=== PATIENT | female | born 1985 | race African-American/Black ===

== ENCOUNTER 2017-04-21 23:32 | Emergency (ER) | payer BC, SELFPAY ==
[2017-04-21] MEDS ORDERED: Pantoprazole 40 MG Vial IVPUSH ONE (23:48)
[2017-04-21] MEDS ORDERED: Aspirin 81 MG Tab.Chew PO ONE (23:48)
[2017-04-21] MEDS ORDERED: Sodium Chloride 0.9% 1,000 ML IV ONE (23:48)
--- NOTE | 2017-04-21 23:48 | EDM.PDOC ---
ED HPI GENERAL MEDICAL PROBLEM - General Chief Complaint: General Stated Complaint: DIABETIC, CHEST PAIN Time Seen by Provider: 04/21/17 23:47 Source of Information: Reports: Patient - History of Present Illness INITIAL COMMENTS - FREE TEXT/NARRATIVE: HISTORY AND PHYSICAL: History of present illness: [] Patient presents with one week of palpitations and chest pain associated with taking her insulin, subsequently with eating. currently , no fever nausea vomiting chills sweats rates pain 3/10 no association with diaphoresis or shortness of breath no radiation to arm neck or jaw. The pain is currently resolved 0/10 in no apparent distress Review of systems: As per history of present illness and below otherwise all systems reviewed and negative. Past medical history: As per history of present illness and as reviewed below otherwise noncontributory. Surgical history: As per history of present illness and as reviewed below otherwise noncontributory. Social history: No reported history of drug or alcohol abuse. Family history: As per history of present illness and as reviewed below otherwise noncontributory. Physical exam: HEENT: Atraumatic, normocephalic, pupils reactive, negative for conjunctival pallor or scleral icterus, mucous membranes moist, throat clear, neck supple, nontender, trachea midline. Lungs: Clear to auscultation, breath sounds equal bilaterally, chest nontender. Heart: S1S2, regular, negative for clicks, rubs, or JVD. Abdomen: Soft, nondistended, nontender. Negative for masses or hepatosplenomegaly. Negative for costovertebral tenderness. Pelvis: Stable nontender. Genitourinary: Deferred. Rectal: Deferred. Extremities: Atraumatic, negative for cords or calf pain. Neurovascular unremarkable. Neuro: Awake, alert, oriented. Cranial nerves II through XII unremarkable. Cerebellum unremarkable. Motor and sensory unremarkable throughout. Exam nonfocal. Diagnostics: [] Lab as below EKG Chest one view Accu-Chek 80 Therapeutics: [] Normal saline bolus Aspirin 324 mg chewable Protonix 80 mg IV Patient refused normal saline and Protonix Impression: [gerd Diabetes mellitus Definitive disposition and diagnosis as appropriate pending reevaluation and review of above. no pain Pain Score (Numeric/FACES): 0 - Related Data Allergies Allergy/AdvReac Type Severity Reaction Status Date / Time No Known Allergies Allergy Verified 04/21/17 23:38 Home Meds: Home Meds Insulin Aspart [NovoLOG] 28 unit SUBCUT ASDIRECTED 04/14/16 [History] Insulin Glargine,Hum.Rec.Anlog [Agustín Calderontonychantale] 72 unit SQ ACBREAKFAST [History] Past Medical History HEENT History: Reports: None Cardiovascular History: Reports: None Respiratory History: Reports: None Gastrointestinal History: Reports: Other (See Below) Other Gastrointestinal History: occas heartburn with Genitourinary History: Reports: None 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 OB/BYN History: currently 16 weeks Musculoskeletal History: Reports: None Neurological History: Reports: None Psychiatric History: Reports: None Endocrine/Metabolic History: Reports: Diabetes, Type II Hematologic History: Reports: None Immunologic History: Reports: None Oncologic (Cancer) History: Reports: None Dermatologic History: Reports: None - Past Surgical History Female Surgical History: Reports: Section Social & Family History - Family History Family Medical History: Noncontributory - Tobacco Use Smoking Status *Q: Never Smoker Second Hand Smoke Exposure: No - Alcohol Use Days Per Week of Alcohol Use: 0 - Recreational Drug Use Recreational Drug Use: No Drug Use in Last 12 Months: No ED ROS GENERAL - Review of Systems Review Of Systems: ROS reveals no pertinent complaints other than HPI. ED EXAM, GENERAL - Physical Exam Exam: See Below Course - Vital Signs Last Recorded V/S: Last Vital Signs Temp 36.3 C 04/21/17 23:40 Pulse 88 04/21/17 23:40 Resp 16 04/21/17 23:40 BP 127/77 04/21/17 23:40 Pulse Ox 98 04/21/17 23:40 - Orders/Labs/Meds Orders: Active Orders 24 hr Category Date Time Status Accu Check [Blood Glucose Check, Bedside] [RC] ONETIME Care 04/21/17 23:50 Active EKG Documentation Completion [RC] STAT Care 04/21/17 23:48 Active Chest 1V Frontal [CR] Stat Exams 04/21/17 23:48 Taken Labs: Laboratory Tests 04/21/17 04/21/17 04/21/17 Range/Units 23:51 23:51 23:51 WBC 6.20 (4.0-11.0) K/uL RBC 3.98 L (4.30-5.90) M/uL Hgb 12.0 (12.0-16.0) g/dL Hct 35.2 L (36.0-46.0) % MCV 88.4 (80.0-98.0) fL MCH 30.2 (27.0-32.0) pg MCHC 34.1 (31.0-37.0) g/dL RDW Std Deviation 46.8 (28.0-62.0) fl RDW Coeff of Puneet 14 (11.0-15.0) % Plt Count 239 (150-400) K/uL MPV 10.10 (7.40-12.00) fL Neut % (Auto) 44.7 L (48.0-80.0) % Lymph % (Auto) 48.1 H (16.0-40.0) % [place] % (Auto) 6.1 (0.0-15.0) % Eos % (Auto) 0.8 (0.0-7.0) % Baso % (Auto) 0.3 (0.0-1.5) % Neut # (Auto) 2.8 (1.4-5.7) K/uL Lymph # (Auto) 3.0 H (0.6-2.4) K/uL [place] # (Auto) 0.4 (0.0-0.8) K/uL Eos # (Auto) 0.1 (0.0-0.7) K/uL Baso # (Auto) 0.0 (0.0-0.1) K/uL Nucleated RBC % 0.0 /100WBC Nucleated RBCs # 0 K/uL Sodium 139 (136-146) mmol/L Potassium 4.0 (3.5-5.1) mmol/L Chloride 111 H (98-110) mmol/L Carbon Dioxide 21 (21-31) mmol/L BUN 11 (6.0-23.0) mg/dL Creatinine 0.8 (0.6-1.5) mg/dL Est Cr Clr Drug Dosing 81.33 mL/min Estimated GFR (MDRD) > 60.0 ml/min Glucose 91 (60-110) mg/dL Calcium 9.1 (8.8-10.8) mg/dL Total Bilirubin 0.2 (0.1-1.5) mg/dL AST 29 (5-40) IU/L ALT 17 (8-54) IU/L Alkaline Phosphatase 63 (40-150) Troponin I < 0.10 (0.0-0.29) NG/ML Total Protein 7.3 (6.0-8.0) g/dL Albumin 4.2 (3.5-5.0) g/dL Globulin 3.1 (2.0-3.5) g/dL Albumin/Globulin Ratio 1.4 (1.3-2.8) Amylase 66 (10-90) U/L Lipase 41 (7-80) U/L Urine Color Urine Appearance Urine pH (5.0-8.0) Ur Specific [place] (1.001-1.035) Urine Protein (NEGATIVE) mg/dL Urine Glucose (UA) (NEGATIVE) mg/dL Urine Ketones (NEGATIVE) mg/dL Urine Occult Blood (NEGATIVE) Urine Nitrite (NEGATIVE) Urine Bilirubin (NEGATIVE) Urine Urobilinogen (<2.0) EU/dL Ur Leukocyte Esterase (NEGATIVE) Urine RBC (0-2/HPF) Urine WBC (0-5/HPF) Ur Epithelial Cells (NONE-FEW) Urine Bacteria (NEGATIVE) 04/22/17 Range/Units 00:10 WBC (4.0-11.0) K/uL RBC (4.30-5.90) M/uL Hgb (12.0-16.0) g/dL Hct (36.0-46.0) % MCV (80.0-98.0) fL MCH (27.0-32.0) pg MCHC (31.0-37.0) g/dL RDW Std Deviation (28.0-62.0) fl RDW Coeff of Puneet (11.0-15.0) % Plt Count (150-400) K/uL MPV (7.40-12.00) fL Neut % (Auto) (48.0-80.0) % Lymph % (Auto) (16.0-40.0) % [place] % (Auto) (0.0-15.0) % Eos % (Auto) (0.0-7.0) % Baso % (Auto) (0.0-1.5) % Neut # (Auto) (1.4-5.7) K/uL Lymph # (Auto) (0.6-2.4) K/uL [place] # (Auto) (0.0-0.8) K/uL Eos # (Auto) (0.0-0.7) K/uL Baso # (Auto) (0.0-0.1) K/uL Nucleated RBC % /100WBC Nucleated RBCs # K/uL Sodium (136-146) mmol/L Potassium (3.5-5.1) mmol/L Chloride (98-110) mmol/L Carbon Dioxide (21-31) mmol/L BUN (6.0-23.0) mg/dL Creatinine (0.6-1.5) mg/dL Est Cr Clr Drug Dosing mL/min Estimated GFR (MDRD) ml/min Glucose (60-110) mg/dL Calcium (8.8-10.8) mg/dL Total Bilirubin (0.1-1.5) mg/dL AST (5-40) IU/L ALT (8-54) IU/L Alkaline Phosphatase (40-150) Troponin I (0.0-0.29) NG/ML Total Protein (6.0-8.0) g/dL Albumin (3.5-5.0) g/dL Globulin (2.0-3.5) g/dL Albumin/Globulin Ratio (1.3-2.8) Amylase (10-90) U/L Lipase (7-80) U/L Urine Color YELLOW Urine Appearance CLEAR Urine pH 6.0 (5.0-8.0) Ur Specific [place] 1.020 (1.001-1.035) Urine Protein NEGATIVE (NEGATIVE) mg/dL Urine Glucose (UA) NEGATIVE (NEGATIVE) mg/dL Urine Ketones NEGATIVE (NEGATIVE) mg/dL Urine Occult Blood NEGATIVE (NEGATIVE) Urine Nitrite NEGATIVE (NEGATIVE) Urine Bilirubin NEGATIVE (NEGATIVE) Urine Urobilinogen 0.2 (<2.0) EU/dL Ur Leukocyte Esterase NEGATIVE (NEGATIVE) Urine RBC 0-1 (0-2/HPF) Urine WBC 0-1 (0-5/HPF) Ur Epithelial Cells MODERATE (NONE-FEW) Urine Bacteria FEW (NEGATIVE) Meds: Medications Discontinued Medications Generic Name Dose Route Start Last Admin Trade Name Freq PRN Reason Stop Dose Admin Aspirin 324 mg 04/21/17 23:48 04/22/17 00:06 Aspirin PO 04/21/17 23:49 324 mg ONETIME ONE Administration Sodium Chloride 1,000 mls @ 999 mls/hr 04/21/17 23:48 04/22/17 00:08 Normal Saline IV 04/22/17 00:48 Not Given STAT ONE Pantoprazole Sodium 80 mg 04/21/17 23:48 04/22/17 00:08 Protonix Iv IVPUSH 04/21/17 23:49 Not Given .BOLUS ONE Departure - Departure Time of Disposition: 01:00 Disposition: Home, Self-Care 01 Condition: good Clinical Impression: GERD (gastroesophageal reflux disease) - Discharge Information Forms: ED Department Discharge Additional Instructions: consider prilosec otc daily return if symptoms persist or worsen f/u pcp 2 weeks sooner as needed - My Orders Last 24 Hours: My Active Orders 04/21/17 23:48 EKG Documentation Completion [RC] STAT Chest 1V Frontal [CR] Stat 04/21/17 23:50 Accu Check [Blood Glucose Check, Bedside] [RC] ONETIME - Assessment/Plan Last 24 Hours: My Active Orders 04/21/17 23:48 EKG Documentation Completion [RC] STAT Chest 1V Frontal [CR] Stat 04/21/17 23:50 Accu Check [Blood Glucose Check, Bedside] [RC] ONETIME
[2017-04-22 00:42] LABS: CHLORIDE,CL 111 mmol/L (98-110); SODIUM,NA 139 mmol/L (136-146)
[2017-04-22 01:10] VITALS: BP 121/80
--- NOTE | 2017-04-23 14:53 | CR ---
EXAM DATE: 04/21/17 PATIENT'S AGE: 31 Patient: MARIAMA STOKES Facility: [place], [place] Site . Site : [id number] Study: XRay Chest [id number]/4/2017 12:26:31 AM Ordering Physician: Vita Regalado Final Report: Indication: Chest pain Technique: Chest 1 view Comparison: None Findings/Impression: Cardiovascular and mediastinum: Upper limits of normal cardiac size, probably related to the portable technique. Lungs and pleural space: Lungs are clear. No sign of infiltrate or mass. No sign of pleural effusion. No pneumothorax. Bones and soft tissues: No significant findings. Dictated by Marco A Chua MD @ 04/22/2017 1:30:23 AM Dictated by: Marco A Chua MD @ 04/22/2017 01:30:31 (Electronic Signature) Report Signed by Proxy. MULUGETA
== END 2017-04-22 01:11 | disposition home or self-care (01) ==
LOC: MW.ED 23:32
DX: K21.9 Gastro-esophageal reflux disease without esophagitis (principal); E11.9 Type 2 diabetes mellitus without complications; Z79.4 Long term (current) use of insulin; Z98.890 Other specified postprocedural states
CPT/HCPCS: 71010; 80053; 81001; 82150; 82962; 83690; 84484; 85025; 93005; 99285; A9270; 99284

== ENCOUNTER 2017-10-19 18:02 | Emergency (ER) | payer BC, SELFPAY ==
[2017-10-19 18:59] LABS: CHLORIDE,CL 108 mmol/L (98-110); SODIUM,NA 139 mmol/L (136-146)
--- NOTE | 2017-10-19 19:01 | EDM.PDOC ---
<Susie Nieto - Last Filed: 10/19/17 19:03> ED HPI GENERAL MEDICAL PROBLEM - General Chief Complaint: Chest Pain Stated Complaint: SHARP CHEST PAIN Time Seen by Provider: 10/19/17 18:08 Source of Information: Reports: Patient History Limitations: Reports: No Limitations - History of Present Illness INITIAL COMMENTS - FREE TEXT/NARRATIVE: History of present illness: []Patient as a history of diabetes and states that usually when her glucose is low it causes sharp chest pain. Pt's glucose has been running normal and this concerns her. She denies any fever, cough, congestion, ear or throat pain. She has no other complaints. Review of systems: As per history of present illness and below otherwise all systems reviewed and negative. Past medical history: As per history of present illness and as reviewed below otherwise noncontributory. Surgical history: As per history of present illness and as reviewed below otherwise noncontributory. Social history: No reported history of drug or alcohol abuse. Family history: As per history of present illness and as reviewed below otherwise noncontributory. Physical exam: General: Well developed, well nourished in NAD HEENT: Atraumatic, normocephalic, pupils reactive, negative for conjunctival pallor or scleral icterus, mucous membranes moist, throat clear, neck supple, nontender, trachea midline. Lungs: Clear to auscultation, breath sounds equal bilaterally, chest nontender. no rhonchi Heart: S1S2, regular, negative for clicks, rubs, or JVD. Abdomen: Soft, nondistended, nontender. Negative for masses or hepatosplenomegaly. Negative for costovertebral tenderness. Pelvis: Stable nontender. Genitourinary: Deferred. Rectal: Deferred. Extremities: Atraumatic, negative for cords or calf pain. Neurovascular unremarkable. Neuro: Awake, alert, oriented. Cranial nerves II through XII unremarkable. Cerebellum unremarkable. Motor and sensory unremarkable throughout. Exam nonfocal. Diagnostics: []chest x-ray and labs results pending. Dr. Barillas to check on results and dispo pt. Therapeutics: [] Impression: [] Plan: [] Definitive disposition and diagnosis as appropriate pending reevaluation and review of above. Middle Chest Pain Score (Numeric/FACES): 6 - Related Data Allergies Allergy/AdvReac Type Severity Reaction Status Date / Time No Known Allergies Allergy Verified 10/19/17 18:27 Home Meds: Home Meds Insulin Aspart [NovoLOG] 28 unit SUBCUT ASDIRECTED 04/14/16 [History] Insulin Glargine,Hum.Rec.Anlog [Agustín Yumikojonathan] 72 unit SQ ACBREAKFAST [History] Past Medical History HEENT History: Reports: None Cardiovascular History: Reports: None Respiratory History: Reports: None Gastrointestinal History: Reports: Other (See Below) Other Gastrointestinal History: occas heartburn with Genitourinary History: Reports: None 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 OB/BYN History: currently 16 weeks Musculoskeletal History: Reports: None Neurological History: Reports: None Psychiatric History: Reports: None Endocrine/Metabolic History: Reports: Diabetes, Type II Hematologic History: Reports: None Immunologic History: Reports: None Oncologic (Cancer) History: Reports: None Dermatologic History: Reports: None - Infectious Disease History Infectious Disease History: Reports: None - Past Surgical History Head Surgeries/Procedures: Reports: None Female Surgical History: Reports: Section Social & Family History - Family History Family Medical History: Noncontributory - Tobacco Use Smoking Status *Q: Never Smoker Second Hand Smoke Exposure: No - Caffeine Use Caffeine Use: Reports: None - Alcohol Use Days Per Week of Alcohol Use: 0 - Recreational Drug Use Recreational Drug Use: No Drug Use in Last 12 Months: No Course - Vital Signs Last Recorded V/S: Last Vital Signs Temp 97.4 F 10/19/17 18:26 Pulse 84 10/19/17 18:26 Resp 20 10/19/17 18:26 BP 116/71 10/19/17 18:26 Pulse Ox 98 10/19/17 18:26 - Orders/Labs/Meds Orders: Active Orders 24 hr Category Date Time Status EKG 12 Lead [EKG Documentation Completion] [RC] STAT Care 10/19/17 18:30 Active Chest 2V [CR] Stat Exams 10/19/17 18:23 Taken Labs: Laboratory Tests 10/19/17 10/19/17 10/19/17 Range/Units 18:36 18:36 18:36 WBC 5.13 (4.0-11.0) K/uL RBC 4.18 L (4.30-5.90) M/uL Hgb 12.6 (12.0-16.0) g/dL Hct 37.4 (36.0-46.0) % MCV 89.5 (80.0-98.0) fL MCH 30.1 (27.0-32.0) pg MCHC 33.7 (31.0-37.0) g/dL RDW Std Deviation 47.0 (28.0-62.0) fl RDW Coeff of [place]uneet 14 (11.0-15.0) % Plt Count 234 (150-400) K/uL MPV 10.60 (7.40-12.00) fL Neut % (Auto) 40.1 L (48.0-80.0) % Lymph % (Auto) 49.5 H (16.0-40.0) % [place] % (Auto) 8.6 (0.0-15.0) % Eos % (Auto) 1.6 (0.0-7.0) % Baso % (Auto) 0.2 (0.0-1.5) % Neut # (Auto) 2.1 (1.4-5.7) K/uL Lymph # (Auto) 2.5 H (0.6-2.4) K/uL [place] # (Auto) 0.4 (0.0-0.8) K/uL Eos # (Auto) 0.1 (0.0-0.7) K/uL Baso # (Auto) 0.0 (0.0-0.1) K/uL Nucleated RBC % 0.0 /100WBC Nucleated RBCs # 0 K/uL Sodium 139 (136-146) mmol/L Potassium 4.0 (3.5-5.1) mmol/L Chloride 108 (98-110) mmol/L Carbon Dioxide 23 (21-31) mmol/L BUN 7 (6.0-23.0) mg/dL Creatinine 0.7 (0.6-1.5) mg/dL Est Cr Clr Drug Dosing 92.10 mL/min Estimated GFR (MDRD) > 60.0 ml/min Glucose 125 H (60-110) mg/dL Calcium 9.8 (8.8-10.8) mg/dL Total Bilirubin 0.2 (0.1-1.5) mg/dL AST 25 (5-40) IU/L ALT 13 (8-54) IU/L Alkaline Phosphatase 72 (40-150) Troponin I < 0.10 (0.0-0.29) NG/ML Total Protein 7.4 (6.0-8.0) g/dL Albumin 3.9 (3.5-5.0) g/dL Globulin 3.5 (2.0-3.5) g/dL Albumin/Globulin Ratio 1.1 L (1.3-2.8) Urine HCG, Qual (NEGATIVE) 10/19/17 Range/Units 18:37 WBC (4.0-11.0) K/uL RBC (4.30-5.90) M/uL Hgb (12.0-16.0) g/dL Hct (36.0-46.0) % MCV (80.0-98.0) fL MCH (27.0-32.0) pg MCHC (31.0-37.0) g/dL RDW Std Deviation (28.0-62.0) fl RDW Coeff of [place]une[place] (11.0-15.0) % Plt Count (150-400) K/uL MPV (7.40-12.00) fL Neut % (Auto) (48.0-80.0) % Lymph % (Auto) (16.0-40.0) % [place] % (Auto) (0.0-15.0) % Eos % (Auto) (0.0-7.0) % Baso % (Auto) (0.0-1.5) % Neut # (Auto) (1.4-5.7) K/uL Lymph # (Auto) (0.6-2.4) K/uL [place] # (Auto) (0.0-0.8) K/uL Eos # (Auto) (0.0-0.7) K/uL Baso # (Auto) (0.0-0.1) K/uL Nucleated RBC % /100WBC Nucleated RBCs # K/uL Sodium (136-146) mmol/L Potassium (3.5-5.1) mmol/L Chloride (98-110) mmol/L Carbon Dioxide (21-31) mmol/L BUN (6.0-23.0) mg/dL Creatinine (0.6-1.5) mg/dL Est Cr Clr Drug Dosing mL/min Estimated GFR (MDRD) ml/min Glucose (60-110) mg/dL Calcium (8.8-10.8) mg/dL Total Bilirubin (0.1-1.5) mg/dL AST (5-40) IU/L ALT (8-54) IU/L Alkaline Phosphatase (40-150) Troponin I (0.0-0.29) NG/ML Total Protein (6.0-8.0) g/dL Albumin (3.5-5.0) g/dL Globulin (2.0-3.5) g/dL Albumin/Globulin Ratio (1.3-2.8) Urine HCG, Qual NEGATIVE (NEGATIVE) Departure - Departure Disposition: Still A Patient 31 Clinical Impression: Chest pain, pleuritic - Discharge Information Referrals: Ricky Drew MD [Primary Care Provider] - Forms: ED Department Discharge Additional Instructions: Ibuprofen 400 mg 3 times daily 7-10 days Return if symptoms persist or worsen Follow-up with primary care in 2 weeks sooner as needed The following information is given to patients seen in the emergency department who are being discharged to home. This information is to outline your options for follow-up care. We provide all patients seen in our emergency department with a follow-up referral. The need for follow-up, as well as the timing and circumstances, are variable depending upon the specifics of your emergency department visit. If you don't have a primary care physician on staff, we will provide you with a referral. We always advise you to contact your personal physician following an emergency department visit to inform them of the circumstance of the visit and for follow-up with them and/or the need for any referrals to a consulting specialist. The emergency department will also refer you to a specialist when appropriate. This referral assures that you have the opportunity for follow-up care with a specialist. All of these measure are taken in an effort to provide you with optimal care, which includes your follow-up. Under all circumstances we always encourage you to contact your private physician who remains a resource for coordinating your care. When calling for follow-up care, please make the office aware that this follow-up is from your recent emergency room visit. If for any reason you are refused follow-up, please contact the [facility] emergency department at and asked to speak to the emergency department charge nurse. <Fabricio Prather - Last Filed: 10/19/17 19:51> ED HPI GENERAL MEDICAL PROBLEM - History of Present Illness INITIAL COMMENTS - FREE TEXT/NARRATIVE: I've seen and examined the patient and agree with the above. Patient has pleuritic chest pain for 2 days worsened by deep inspiration she rates 3 out of 10 nonradiating along the costal margins bilaterally. Not associated with diaphoresis shortness of breath or radiation arm neck or jaw Patient has had slight dry cough over the last couple of days and presents as such, Denies fever nausea vomiting diarrhea constipation shortness breath headache dizziness or palpitation no bowel or urine symptoms Gen. no acute distress lying comfortably breathing nonlabored able to speak full sentences clearly HEENT NCAT PERRLA EOMI nares patent oropharynx clear neck supple no meningeal sign Chest clear throughout no wheeze or crackle CV regular rate and rhythm no murmur Abdomen soft nontender nondistended bowel sounds in all 4 quadrants Extremities four-inch motion strength 5 out of 5 no edema DIRECTOR OF ADMISSIONS alert nonfocal cranial nerves II through XII grossly intact cerebellum unremarkable motor and sensory unremarkable throughout exam nonfocal Lab as below, cardiac enzymes negative Chest x-ray Assessment Pleuritic chest pain Plan Ibuprofen 400 mg 3 times daily 7-10 days Return if symptoms persist or worsen Follow-up with primary care in 2 weeks Definitive disposition and diagnosis as appropriate pending reevaluation and review of above ED ROS GENERAL - Review of Systems Review Of Systems: ROS reveals no pertinent complaints other than HPI. ED EXAM, GENERAL - Physical Exam Exam: See Below Departure - Departure Time of Disposition: 19:50 Condition: Good
[2017-10-19 21:28] VITALS: BP 120/77
--- NOTE | 2017-10-22 11:42 | CR ---
EXAM DATE: 10/19/17 PATIENT'S AGE: 32 Patient: MARIAMA STOKES Facility: [place], [place] Site . Site : 1985 Study: XRay Chest [id number]/1/2017 7:36:42 PM Ordering Physician: Gerson Richards Final Report: INDICATION: chest pain TECHNIQUE: Chest 2 views COMPARISON: April 22, 2017 FINDINGS: Cardiovascular and mediastinum: Heart size and vasculature are normal in caliber and appearance. Mediastinum is within normal limits. Lungs and pleural spaces: No focal consolidation. No sign of pleural effusion. No pneumothorax. Bones and soft tissues: No significant findings. IMPRESSION: No acute cardiopulmonary disease. Dictated by Danyel Salvador MD @ 10/19/2017 7:49:47 PM Dictated by: Danyel Salvador MD @ 10/19/2017 19:49:55 (Electronic Signature) Report Signed by Proxy. MTDTina
== END 2017-10-19 20:08 | disposition home or self-care (01) ==
LOC: MW.ED 18:02
DX: R07.81 Pleurodynia (principal); E11.9 Type 2 diabetes mellitus without complications; Z79.4 Long term (current) use of insulin
CPT/HCPCS: 36415; 71020; 71020-26; 80053; 81025; 84484; 85025; 93005; 99284; 99285-25

== ENCOUNTER 2017-10-20 17:45 | Emergency (ER) | payer BC, SELFPAY ==
[2017-10-20] MEDS ORDERED: Alum Hydrox/Mag Hydrox/Simeth 15 ML, Metoclopramide 5 MG, Lidocaine 2% 5 ML PO ONE ×3 (18:05)
--- NOTE | 2017-10-20 18:13 | EDM.PDOC ---
ED HPI GENERAL MEDICAL PROBLEM - General Chief Complaint: Chest Pain Stated Complaint: PT HAS CHEST PAINS Time Seen by Provider: 10/20/17 17:58 Source of Information: Reports: Patient History Limitations: Reports: No Limitations - History of Present Illness INITIAL COMMENTS - FREE TEXT/NARRATIVE: History of present illness: []Patient is a 32-year-old female who is insulin-dependent diabetic who is here yesterday for the same reason of chest pain that she states is burning and heavy. She's had it before her cardiac workup has been negative. Diagnosed with GERD but does not take any medications for it currently. She is very upset because she was here yesterday and she was not happy with her care and is not happy that she has not received any pain medication. Patient seems to be very concerned that she has pain and and normal glucose. Usually her glucose is low when she has this pain. I offered to let this patient be evaluated by the other provider given that she was very unhappy with her care but she refused. Review of systems: As per history of present illness and below otherwise all systems reviewed and negative. Past medical history: As per history of present illness and as reviewed below otherwise noncontributory. Surgical history: As per history of present illness and as reviewed below otherwise noncontributory. Social history: No reported history of drug or alcohol abuse. Family history: As per history of present illness and as reviewed below otherwise noncontributory. Physical exam: General: Well developed, well nourished in NAD HEENT: Atraumatic, normocephalic, pupils reactive, negative for conjunctival pallor or scleral icterus, mucous membranes moist, throat clear, neck supple, nontender, trachea midline. Lungs: Clear to auscultation, breath sounds equal bilaterally, chest nontender. Heart: S1S2, regular, negative for clicks, rubs, or JVD. Abdomen: Soft, nondistended, mild epigastric tenderness without rebound or guarding. Negative for masses or hepatosplenomegaly. Negative for costovertebral tenderness. Pelvis: Stable nontender. Genitourinary: Deferred. Rectal: Deferred. Extremities: Atraumatic, negative for cords or calf pain. Neurovascular unremarkable. Neuro: Awake, alert, oriented. Cranial nerves II through XII unremarkable. Cerebellum unremarkable. Motor and sensory unremarkable throughout. Exam nonfocal. Diagnostics: []CABG 117 Therapeutics: []GI cocktail with alleviation of her abdominal pain Impression: []GERD, gastroparesis secondary to diabetes Plan: []Prilosec twice a day follow-up with her primary care physician Definitive disposition and diagnosis as appropriate pending reevaluation and review of above. Mid-Sternal Chest Pain Score (Numeric/FACES): 8 - Related Data Allergies Allergy/AdvReac Type Severity Reaction Status Date / Time No Known Allergies Allergy Verified 10/20/17 18:05 Home Meds: Home Meds Insulin Aspart [NovoLOG] 28 unit SUBCUT ASDIRECTED 04/14/16 [History] Insulin Glargine,Hum.Rec.Anlog [Toujeo Solostar] 72 unit SQ ACBREAKFAST [History] Omeprazole Magnesium [Prilosec] 20 mg PO BID #30 suspdr.pkt 10/20/17 [Rx] Past Medical History HEENT History: Reports: None Cardiovascular History: Reports: None Respiratory History: Reports: None Gastrointestinal History: Reports: GERD, Other (See Below) Other Gastrointestinal History: occas heartburn with Genitourinary History: Reports: None 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 OB/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 History: currently 16 weeks Musculoskeletal History: Reports: None Neurological History: Reports: None Psychiatric History: Reports: None Endocrine/Metabolic History: Reports: Diabetes, Type II Hematologic History: Reports: None Immunologic History: Reports: None Oncologic (Cancer) History: Reports: None Dermatologic History: Reports: None - Infectious Disease History Infectious Disease History: Reports: None - Past Surgical History Head Surgeries/Procedures: Reports: None Female Surgical History: Reports: Section Social & Family History - Family History Family Medical History: Noncontributory - Tobacco Use Smoking Status *Q: Never Smoker Second Hand Smoke Exposure: No - Caffeine Use Caffeine Use: Reports: None - Alcohol Use Days Per Week of Alcohol Use: 0 - Recreational Drug Use Recreational Drug Use: No Drug Use in Last 12 Months: No ED ROS GENERAL - Review of Systems Review Of Systems: See Below ED EXAM, GENERAL - Physical Exam Exam: See Below (See history of present illness) Course - Vital Signs Last Recorded V/S: Last Vital Signs Temp 98.2 F 10/20/17 18:38 Pulse 85 10/20/17 18:38 Resp 17 10/20/17 18:38 BP 123/82 10/20/17 18:38 Pulse Ox 100 10/20/17 18:38 - Orders/Labs/Meds Orders: Active Orders 24 hr Category Date Time Status Blood Glucose Check, Bedside [RC] ONETIME Care 10/20/17 18:05 Active Labs: Laboratory Tests 10/20/17 Range/Units 18:04 POC Glucose 117 H (60-110) mg/dL Meds: Medications Discontinued Medications Generic Name Dose Route Start Last Admin Trade Name Lolis PRN Reason Stop Dose Admin Al Hydroxide/Mg Hydroxide 15 0 ml 10/20/17 18:05 10/20/17 18:18 ml/ Metoclopramide HCl 5 mg/ PO 10/20/17 18:06 1 each Lidocaine HCl 5 ml ONETIME ONE Administration Departure - Departure Time of Disposition: 18:45 Disposition: Home, Self-Care 01 Condition: Good Clinical Impression: GERD (gastroesophageal reflux disease) Qualifiers: Esophagitis presence: esophagitis presence not specified Qualified Code(s): K21.9 - Gastro-esophageal reflux disease without esophagitis - Discharge Information Prescriptions: Omeprazole Magnesium [Prilosec] 20 mg PO BID #30 suspdr.pkt Instructions: Gastroesophageal Reflux Disease, Adult, [id number] Referrals: PCP,None [Primary Care Provider] - Forms: ED Department Discharge Additional Instructions: The following information is given to patients seen in the emergency department who are being discharged to home. This information is to outline your options for follow-up care. We provide all patients seen in our emergency department with a follow-up referral. The need for follow-up, as well as the timing and circumstances, are variable depending upon the specifics of your emergency department visit. If you don't have a primary care physician on staff, we will provide you with a referral. We always advise you to contact your personal physician following an emergency department visit to inform them of the circumstance of the visit and for follow-up with them and/or the need for any referrals to a consulting specialist. The emergency department will also refer you to a specialist when appropriate. This referral assures that you have the opportunity for follow-up care with a specialist. All of these measure are taken in an effort to provide you with optimal care, which includes your follow-up. Under all circumstances we always encourage you to contact your private physician who remains a resource for coordinating your care. When calling for follow-up care, please make the office aware that this follow-up is from your recent emergency room visit. If for any reason you are refused follow-up, please contact the [facility] Emergency Department at and asked to speak to the emergency department charge nurse. Pascual twice a day follow-up with your primary care physician. [facility] [address] [place] [id number] - My Orders Last 24 Hours: My Active Orders 10/20/17 18:05 Blood Glucose Check, Bedside [RC] ONETIME - Assessment/Plan Last 24 Hours: My Active Orders 10/20/17 18:05 Blood Glucose Check, Bedside [RC] ONETIME
[2017-10-20 19:12] VITALS: BP 123/82
== END 2017-10-20 18:41 | disposition home or self-care (01) ==
LOC: MW.ED 17:45
DX: K21.9 Gastro-esophageal reflux disease without esophagitis (principal); E11.43 Type 2 diabetes mellitus with diabetic autonomic (poly)neuropathy; K31.84 Gastroparesis; Z79.4 Long term (current) use of insulin
CPT/HCPCS: 82962; 99285; A9270; 99284

== ENCOUNTER 2017-10-24 17:53 | Emergency (ER) | payer BC, SELFPAY ==
[2017-10-24] MEDS ORDERED: Alum Hydrox/Mag Hydrox/Simeth 15 ML, Metoclopramide 5 MG, Lidocaine 2% 5 ML PO ONE ×3 (18:04)
[2017-10-24 18:16] VITALS: BP 117/80
[2017-10-24] MEDS ORDERED: Magnesium Hydroxide 400 MG/5 ML Susp 30 ML Cup PO ONE (19:06)
--- NOTE | 2017-10-24 19:28 | EDM.PDOC ---
ED HPI GENERAL MEDICAL PROBLEM - General Chief Complaint: Abdominal Pain Stated Complaint: STOMACH PAIN Time Seen by Provider: 10/24/17 19:22 Source of Information: Reports: Patient History Limitations: Reports: No Limitations - History of Present Illness INITIAL COMMENTS - FREE TEXT/NARRATIVE: HISTORY AND PHYSICAL: []32-year-old female presents with concerns of lower abdominal pain History of Present Illness: []She is known to the emergency room as she was here yesterday and was started on proton pump inhibitor She states it has been about a week since she's had a good bowel movement She is a type I diabetic on insulin Review of Systems: As per history of present illness and below otherwise all systems reviewed and negative. Past medical history: As per history of present illness and as reviewed below otherwise noncontributory. Surgical history: As per history of present illness and as reviewed below otherwise noncontributory. Social history: No reported history of drug or alcohol abuse. Family history: As per history of present illness and as reviewed below otherwise noncontributory. Physical exam: Alert and oriented, answering questions appropriately, she speaks in full sentences without any shortness of breath. HEENT: Atraumatic, normocehpalic, pupils reactive, negative for conjunctival pallor or scleral icterus, mucous membranes moist, throat clear, neck supple, nontender, trachea midline. Lungs: Clear to auscultation, breath sounds equal bilaterally, chest non tender. Heart: S1S2, regular, negative for clicks, rubs, or JVD. Abdomen: Soft, nondistended, nontender, she has stated she improves after taking the proton pump inhibitor given to her yesterday, pain has reduced in intensity. Negative for masses or hepatossplenmegaly. Negative for costovertebral tenderness. Pelvis: Stable nontender. Genitourinary: Deferred. Rectal: Deferred Extremities: Atraumatic, negative for cords or calf pain. Neurovascular unremarkable. Neuro: Awake, alert, oriented. Cranial nerves II through XII unremarkable. Cerebellum unremarkable. Motor and sensory unremarkable throughout. Exam nonfocal. QUESTIONS were answered. Patient had Admission verbalized understanding Diagnostics: [Abdomen flat and upright] Therapeutics: [GI cocktail Milk of magnesia] Impression: [Constipation Abdominal pain] Plan: [Discharged to home Milk of magnesia for discomfort and constipation ] Definitive disposition and diagnosis as appropriate pending reevaluation and review of above. Onset: Gradual Duration: Day(s): Location: Reports: Abdomen Abdomen Pain Score (Numeric/FACES): 8 - Related Data Allergies Allergy/AdvReac Type Severity Reaction Status Date / Time No Known Allergies Allergy Verified 10/24/17 18:00 Home Meds: Home Meds Insulin Aspart [NovoLOG] 28 unit SUBCUT ASDIRECTED 04/14/16 [History] Insulin Glargine,Hum.Rec.Anlog [Toujeo Solostar] 72 unit SQ ACBREAKFAST [History] Omeprazole Magnesium [Prilosec] 20 mg PO BID #30 suspdr.pkt 10/20/17 [Rx] Past Medical History HEENT History: Reports: None Cardiovascular History: Reports: None Respiratory History: Reports: None Gastrointestinal History: Reports: GERD, Other (See Below) Other Gastrointestinal History: occas heartburn with Genitourinary History: Reports: None 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 OB/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 History: currently 16 weeks Musculoskeletal History: Reports: None Neurological History: Reports: None Psychiatric History: Reports: None Endocrine/Metabolic History: Reports: Diabetes, Type II Hematologic History: Reports: None Immunologic History: Reports: None Oncologic (Cancer) History: Reports: None Dermatologic History: Reports: None - Infectious Disease History Infectious Disease History: Reports: None - Past Surgical History Head Surgeries/Procedures: Reports: None GI Surgical History: Reports: None Female Surgical History: Reports: Section Social & Family History - Family History Family Medical History: Noncontributory - Tobacco Use Smoking Status *Q: Never Smoker Second Hand Smoke Exposure: No - Caffeine Use Caffeine Use: Reports: None - Alcohol Use Days Per Week of Alcohol Use: 0 - Recreational Drug Use Recreational Drug Use: No Drug Use in Last 12 Months: No ED ROS GENERAL - Review of Systems Review Of Systems: ROS reveals no pertinent complaints other than HPI. ED EXAM, GI/ABD - Physical Exam Exam: See Below (see dictation) Course - Vital Signs Last Recorded V/S: Last Vital Signs Temp 36.8 C 10/24/17 18:09 Pulse 99 10/24/17 18:09 Resp 16 10/24/17 18:09 BP 117/80 10/24/17 18:09 Pulse Ox 99 10/24/17 18:09 - Orders/Labs/Meds Orders: Active Orders 24 hr Category Date Time Status Abdomen 2V AP Flat Upright [CR] Stat Exams 10/24/17 18:04 Taken Labs: Laboratory Tests 10/24/17 Range/Units 18:20 Urine Color YELLOW Urine Appearance SLT CLOUDY Urine pH 7.0 (5.0-8.0) Ur Specific Wilson 1.015 (1.001-1.035) Urine Protein NEGATIVE (NEGATIVE) mg/dL Urine Glucose (UA) NEGATIVE (NEGATIVE) mg/dL Urine Ketones NEGATIVE (NEGATIVE) mg/dL Urine Occult Blood NEGATIVE (NEGATIVE) Urine Nitrite NEGATIVE (NEGATIVE) Urine Bilirubin NEGATIVE (NEGATIVE) Urine Urobilinogen 0.2 (<2.0) EU/dL Ur Leukocyte Esterase NEGATIVE (NEGATIVE) Urine RBC 0-1 (0-2/HPF) Urine WBC 0-1 (0-5/HPF) Ur Epithelial Cells MODERATE (NONE-FEW) Urine Bacteria RARE (NEGATIVE) Meds: Medications Discontinued Medications Generic Name Dose Route Start Last Admin Trade Name Freq PRN Reason Stop Dose Admin Al Hydroxide/Mg Hydroxide 15 0 ml 10/24/17 18:04 10/24/17 19:09 ml/ Metoclopramide HCl 5 mg/ PO 10/24/17 18:05 25 each Lidocaine HCl 5 ml ONETIME ONE Administration Magnesium Hydroxide 30 ml 10/24/17 19:06 10/24/17 19:17 Milk Of Magnesia PO 10/24/17 19:07 30 ml ONETIME ONE Administration Departure - Departure Time of Disposition: 19:28 Disposition: Home, Self-Care 01 Condition: Good Clinical Impression: Constipation Qualifiers: Constipation type: unspecified constipation type Qualified Code(s): K59.00 - Constipation, unspecified - Discharge Information Instructions: Constipation, Pediatric, [id number] Referrals: Ricky Drew MD [Primary Care Provider] - Forms: ED Department Discharge Additional Instructions: The following information is given to patients seen in the emergency department who are being discharged to home. This information is to outline your options for follow-up care. We provide all patients seen in our emergency department with a follow-up referral. The need for follow-up, as well as the timing and circumstances, are variable depending upon the specifics of your emergency department visit. If you don't have a primary care physician on staff, we will provide you with a referral. We always advise you to contact your personal physician following an emergency department visit to inform them of the circumstance of the visit and for follow-up with them and/or the need for any referrals to a consulting specialist. The emergency department will also refer you to a specialist when appropriate. This referral assures that you have the opportunity for followup care with a specialist. All of these measure are taken in an effort to provide you with optimal care, which includes your followup. Under all circumstances we always encourage you to contact your private physician who remains a resource for coordinating your care. When calling for followup care, please make the office aware that this follow-up is from your recent emergency room visit. If for any reason you are refused follow-up, please contact the [facility] emergency department at and ask to speak to the emergency department charge nurse. [address] [place] [address] These contact her provider Dr. Drew at the clinic for follow-up care in the next 1-2 days and return to ER as needed and as discussed. Please eat a high- fiber diet and push hydration and avoid caffeinated products fast foods and junk foods. Use [id number] milk of magnesia or MiraLAX to assist with your stools and continue your Prilosec that you are currently on. - My Orders Last 24 Hours: My Active Orders 10/24/17 18:04 Abdomen 2V AP Flat Upright [CR] Stat - Assessment/Plan Last 24 Hours: My Active Orders 10/24/17 18:04 Abdomen 2V AP Flat Upright [CR] Stat
--- NOTE | 2017-10-25 10:20 | CR ---
EXAM DATE: 10/24/17 PATIENT'S AGE: 32 Patient: MARIAMA STOKES Facility: [place], [place] Site . Site : 1985 Study: XRay Abdomen [id number]/6/2017 6:32:40 PM Ordering Physician: Doctor Leon Final Report: INDICATION: abd pain TECHNIQUE: Abdomen 2 view COMPARISON: None FINDINGS: Bowel: Nonobstructive bowel gas pattern. Soft tissues: No sign of soft tissue mass. No suspicious calcifications. Bones: Unremarkable for age. IMPRESSION: Nonobstructive bowel gas pattern. Dictated by Danyel Salvador MD @ 10/24/2017 7:03:36 PM Dictated by: Danyel Salvador MD @ 10/24/2017 19:03:45 (Electronic Signature) Report Signed by Proxy. MTDTina
== END 2017-10-24 19:24 | disposition home or self-care (01) ==
LOC: MW.ED 17:53
DX: K59.00 Constipation, unspecified (principal); E11.9 Type 2 diabetes mellitus without complications; Z79.4 Long term (current) use of insulin
CPT/HCPCS: 74020; 81001; 99284; A9270

== ENCOUNTER 2018-06-30 15:16 | Emergency (ER) | payer SELFPAY ==
[2018-06-30] MEDS ORDERED: Ondansetron 4 MG/2 ML SDV IVPUSH ONE (15:19)
[2018-06-30] MEDS ORDERED: Pantoprazole 40 MG Vial IVPUSH ONE (15:19)
[2018-06-30] MEDS ORDERED: Sodium Chloride 0.9% 1,000 ML IV ONE (15:19)
--- NOTE | 2018-06-30 15:20 | EDM.PDOC ---
ED HPI GENERAL MEDICAL PROBLEM - General Stated Complaint: STOMACH PAIN Time Seen by Provider: 06/30/18 15:20 Source of Information: Reports: Patient - History of Present Illness INITIAL COMMENTS - FREE TEXT/NARRATIVE: HISTORY AND PHYSICAL: History of present illness: [Patient presents with 8 out of 10 right upper quadrant pain with food association, she has had pain for months initially seen back in November with a negative CT scan has been some food association however the patient is essentially weaned yourself off of fatty foods She complains of some nausea and abdominal pain as stated no vomiting chills sweats no chest pain shortness breath headache dizziness or palpitation no bowel or urine symptoms Patient is asymptomatic with below treatment] Review of systems: As per history of present illness and below otherwise all systems reviewed and negative. Past medical history: As per history of present illness and as reviewed below otherwise noncontributory. Surgical history: As per history of present illness and as reviewed below otherwise noncontributory. Social history: No reported history of drug or alcohol abuse. Family history: As per history of present illness and as reviewed below otherwise noncontributory. Physical exam: HEENT: Atraumatic, normocephalic, pupils reactive, negative for conjunctival pallor or scleral icterus, mucous membranes moist, throat clear, neck supple, nontender, trachea midline. Lungs: Clear to auscultation, breath sounds equal bilaterally, chest nontender. Heart: S1S2, regular, negative for clicks, rubs, or JVD. Abdomen: Soft, nondistended, right upper quadrant tenderness on deep palpation no guarding or rebound. Negative for masses or hepatosplenomegaly. Negative for costovertebral tenderness. Pelvis: Stable nontender. Genitourinary: Deferred. Rectal: Deferred. Extremities: Atraumatic, negative for cords or calf pain. Neurovascular unremarkable. Neuro: Awake, alert, oriented. Cranial nerves II through XII unremarkable. Cerebellum unremarkable. Motor and sensory unremarkable throughout. Exam nonfocal. Diagnostics: []CBC CMP UA hCG lipase Abdomen ultrasound limited Therapeutics: []1 L normal saline bolus Zofran 8 mg IV Toradol 30 mg IV Toradol Zofran Follow-up Gen. surgery consider HIDA scan Impression: [Abdominal pain] Definitive disposition and diagnosis as appropriate pending reevaluation and review of above. Abdominal Pain Score (Numeric/FACES): 7 - Related Data Allergies Allergy/AdvReac Type Severity Reaction Status Date / Time No Known Allergies Allergy Verified 06/30/18 15:31 Home Meds: Home Meds Insulin Aspart [NovoLOG] 28 unit SUBCUT ASDIRECTED 04/14/16 [History] Insulin Glargine,Hum.Rec.Anlog [Agustín [place]] 72 unit SQ ACBREAKFAST [History] Past Medical History HEENT History: Reports: None Cardiovascular History: Reports: None Respiratory History: Reports: None Gastrointestinal History: Reports: GERD, Other (See Below) Other Gastrointestinal History: occas heartburn with Genitourinary History: Reports: None DRILL PRESSER History: Reports: Other DRILL PRESSER History: currently 16 weeks Musculoskeletal History: Reports: None Neurological History: Reports: None Psychiatric History: Reports: None Endocrine/Metabolic History: Reports: Diabetes, Type II Hematologic History: Reports: None Immunologic History: Reports: None Oncologic (Cancer) History: Reports: None Dermatologic History: Reports: None - Infectious Disease History Infectious Disease History: Reports: None - Past Surgical History Head Surgeries/Procedures: Reports: None GI Surgical History: Reports: None Female Surgical History: Reports: Section Social & Family History - Family History Family Medical History: Noncontributory - Caffeine Use Caffeine Use: Reports: None ED ROS GENERAL - Review of Systems Review Of Systems: See Below ED EXAM, GENERAL - Physical Exam Exam: See Below Course - Vital Signs Last Recorded V/S: Last Vital Signs Temp 97.7 F 06/30/18 15:26 Pulse 90 06/30/18 15:26 Resp 16 06/30/18 15:26 BP 123/75 06/30/18 15:26 Pulse Ox 98 06/30/18 15:26 - Orders/Labs/Meds Orders: Active Orders 24 hr Category Date Time Status Abdomen Ltd [US] Stat Exams 06/30/18 16:01 Taken HCG QUALITATIVE,URINE [URCHEM] Stat Lab 06/30/18 16:06 Ordered UA W/MICROSCOPIC [URIN] Stat Lab 06/30/18 16:06 Ordered Labs: Laboratory Tests 06/30/18 06/30/18 06/30/18 Range/Units 15:42 15:42 16:06 WBC 5.40 (4.0-11.0) K/uL RBC 4.27 L (4.30-5.90) M/uL Hgb 12.4 (12.0-16.0) g/dL Hct 37.4 (36.0-46.0) % MCV 87.6 (80.0-98.0) fL MCH 29.0 (27.0-32.0) pg MCHC 33.2 (31.0-37.0) g/dL RDW Std Deviation 44.0 (28.0-62.0) fl RDW Coeff of Puneet 14 (11.0-15.0) % Plt Count 214 (150-400) K/uL MPV 9.70 (7.40-12.00) fL Neut % (Auto) 38.8 L (48.0-80.0) % Lymph % (Auto) 51.7 H (16.0-40.0) % [place] % (Auto) 7.6 (0.0-15.0) % Eos % (Auto) 1.5 (0.0-7.0) % Baso % (Auto) 0.4 (0.0-1.5) % Neut # (Auto) 2.1 (1.4-5.7) K/uL Lymph # (Auto) 2.8 H (0.6-2.4) K/uL [place] # (Auto) 0.4 (0.0-0.8) K/uL Eos # (Auto) 0.1 (0.0-0.7) K/uL Baso # (Auto) 0.0 (0.0-0.1) K/uL Nucleated RBC % 0.0 /100WBC Nucleated RBCs # 0 K/uL Sodium 139 (136-145) mmol/L Potassium 3.9 (3.5-5.1) mmol/L Chloride 105 (98-107) mmol/L Carbon Dioxide 28.5 (21.0-32.0) mmol/L BUN 10 (7.0-18.0) mg/dL Creatinine 0.7 (0.6-1.0) mg/dL Est Cr Clr Drug Dosing 92.10 mL/min Estimated GFR (MDRD) > 60.0 ml/min Glucose 73 L (74-106) mg/dL Calcium 9.7 (8.5-10.1) mg/dL Total Bilirubin 0.2 (0.2-1.0) mg/dL AST 19 (15-37) IU/L ALT 18 (14-63) IU/L Alkaline Phosphatase 86 (46-116) U/L Total Protein 7.6 (6.4-8.2) g/dL Albumin 3.7 (3.4-5.0) g/dL Globulin 3.9 H (2.0-3.5) g/dL Albumin/Globulin Ratio 1.0 L (1.3-2.8) Lipase 123 (73-393) U/L Urine Color YELLOW Urine Appearance CLEAR Urine pH 7.0 (5.0-8.0) Ur Specific [place] 1.015 (1.001-1.035) Urine Protein NEGATIVE (NEGATIVE) mg/dL Urine Glucose (UA) NEGATIVE (NEGATIVE) mg/dL Urine Ketones NEGATIVE (NEGATIVE) mg/dL Urine Occult Blood NEGATIVE (NEGATIVE) Urine Nitrite NEGATIVE (NEGATIVE) Urine Bilirubin NEGATIVE (NEGATIVE) Urine Urobilinogen 0.2 (<2.0) EU/dL Ur Leukocyte Esterase NEGATIVE (NEGATIVE) Urine RBC NONE SEEN (0-2/HPF) Urine WBC 0-1 (0-5/HPF) Ur Epithelial Cells FEW (NONE-FEW) Urine Bacteria RARE (NEGATIVE) Urine HCG, Qual (NEGATIVE) 06/30/18 Range/Units 16:06 WBC (4.0-11.0) K/uL RBC (4.30-5.90) M/uL Hgb (12.0-16.0) g/dL Hct (36.0-46.0) % MCV (80.0-98.0) fL MCH (27.0-32.0) pg MCHC (31.0-37.0) g/dL RDW Std Deviation (28.0-62.0) fl RDW Coeff of Puneet (11.0-15.0) % Plt Count (150-400) K/uL MPV (7.40-12.00) fL Neut % (Auto) (48.0-80.0) % Lymph % (Auto) (16.0-40.0) % [place] % (Auto) (0.0-15.0) % Eos % (Auto) (0.0-7.0) % Baso % (Auto) (0.0-1.5) % Neut # (Auto) (1.4-5.7) K/uL Lymph # (Auto) (0.6-2.4) K/uL [place] # (Auto) (0.0-0.8) K/uL Eos # (Auto) (0.0-0.7) K/uL Baso # (Auto) (0.0-0.1) K/uL Nucleated RBC % /100WBC Nucleated RBCs # K/uL Sodium (136-145) mmol/L Potassium (3.5-5.1) mmol/L Chloride (98-107) mmol/L Carbon Dioxide (21.0-32.0) mmol/L BUN (7.0-18.0) mg/dL Creatinine (0.6-1.0) mg/dL Est Cr Clr Drug Dosing mL/min Estimated GFR (MDRD) ml/min Glucose (74-106) mg/dL Calcium (8.5-10.1) mg/dL Total Bilirubin (0.2-1.0) mg/dL AST (15-37) IU/L ALT (14-63) IU/L Alkaline Phosphatase (46-116) U/L Total Protein (6.4-8.2) g/dL Albumin (3.4-5.0) g/dL Globulin (2.0-3.5) g/dL Albumin/Globulin Ratio (1.3-2.8) Lipase (73-393) U/L Urine Color Urine Appearance Urine pH (5.0-8.0) Ur Specific [place] (1.001-1.035) Urine Protein (NEGATIVE) mg/dL Urine Glucose (UA) (NEGATIVE) mg/dL Urine Ketones (NEGATIVE) mg/dL Urine Occult Blood (NEGATIVE) Urine Nitrite (NEGATIVE) Urine Bilirubin (NEGATIVE) Urine Urobilinogen (<2.0) EU/dL Ur Leukocyte Esterase (NEGATIVE) Urine RBC (0-2/HPF) Urine WBC (0-5/HPF) Ur Epithelial Cells (NONE-FEW) Urine Bacteria (NEGATIVE) Urine HCG, Qual NEGATIVE (NEGATIVE) Meds: Medications Discontinued Medications Generic Name Dose Route Start Last Admin Trade Name Freq PRN Reason Stop Dose Admin Sodium Chloride 1,000 mls @ 999 mls/hr 06/30/18 15:19 06/30/18 15:47 Normal Saline IV 06/30/18 16:19 999 mls/hr STAT ONE Administration Ketorolac Tromethamine 30 mg 06/30/18 15:32 06/30/18 15:54 Toradol IVPUSH 06/30/18 15:33 30 mg ONETIME ONE Administration Ondansetron HCl 8 mg 06/30/18 15:19 06/30/18 15:53 Zofran IVPUSH 06/30/18 15:20 8 mg ONETIME ONE Administration Ondansetron HCl Confirm 06/30/18 15:52 06/30/18 16:40 Zofran Administered 06/30/18 15:53 Not Given Dose 4 mg .ROUTE .STK-MED ONE Pantoprazole Sodium 80 mg 06/30/18 15:19 06/30/18 15:54 Protonix Iv IVPUSH 06/30/18 15:20 80 mg .BOLUS ONE Administration Departure - Departure Time of Disposition: 18:09 Disposition: Home, Self-Care 01 Condition: Good Clinical Impression: Abdominal pain - Discharge Information Referrals: PCP,None [Primary Care Provider] - Additional Instructions: [place] diet as discussed Return if symptoms persist or worsen or if new concerning symptoms develop Follow-up with general surgery, call phone number below to schedule appropriate follow-up and consider HIDA scan testing Medication as prescribed [facility] - General Surgery [address], [address] [place] [address] The following information is given to patients seen in the emergency department who are being discharged to home. This information is to outline your options for follow-up care. We provide all patients seen in our emergency department with a follow-up referral. The need for follow-up, as well as the timing and circumstances, are variable depending upon the specifics of your emergency department visit. If you don't have a primary care physician on staff, we will provide you with a referral. We always advise you to contact your personal physician following an emergency department visit to inform them of the circumstance of the visit and for follow-up with them and/or the need for any referrals to a consulting specialist. The emergency department will also refer you to a specialist when appropriate. This referral assures that you have the opportunity for follow-up care with a specialist. All of these measure are taken in an effort to provide you with optimal care, which includes your follow-up. Under all circumstances we always encourage you to contact your private physician who remains a resource for coordinating your care. When calling for follow-up care, please make the office aware that this follow-up is from your recent emergency room visit. If for any reason you are refused follow-up, please contact the [facility] emergency department at and asked to speak to the emergency department charge nurse. - My Orders Last 24 Hours: My Active Orders 06/30/18 16:01 Abdomen Ltd [US] Stat 06/30/18 16:06 HCG QUALITATIVE,URINE [URCHEM] Stat UA W/MICROSCOPIC [URIN] Stat - Assessment/Plan Last 24 Hours: My Active Orders 06/30/18 16:01 Abdomen Ltd [US] Stat 06/30/18 16:06 HCG QUALITATIVE,URINE [URCHEM] Stat UA W/MICROSCOPIC [URIN] Stat
[2018-06-30 15:31] VITALS: BP 123/75
[2018-06-30] MEDS ORDERED: Ketorolac 30 MG/ML SDV IVPUSH ONE (15:32)
[2018-06-30] MEDS ORDERED: Ondansetron 4 MG/2 ML SDV ONE (15:52)
[2018-06-30 16:12] LABS: CHLORIDE,CL 105 mmol/L (98-107); SODIUM,NA 139 mmol/L (136-145)
--- NOTE | 2018-07-01 10:14 | US ---
EXAM DATE: 06/30/18 PATIENT'S AGE: 32 Patient: MARIAMA STOKES Facility: [place], [place] Site . Site : [id number] Study: US Abdomen [id number] 5:25:30 PM Ordering Physician: Vita Regalado Final Report: INDICATION: Right upper quadrant pain. TECHNIQUE: Abdominal limited ultrasound. FINDINGS: Pancreas where seen normal. Right kidney measures 11.7 cm and is negative for hydronephrosis. Gallbladder is somewhat contracted gallbladder wall is normal. No stones in the gallbladder. Shear Operator Helper reported a positive sonographic Hill `s sign. Given this finding acalculous cholecystitis cannot be excluded. If clinically desired, HIDA scan could further evaluate for such etiology if desired. Common bile duct measures 5.8 mm which is normal. Liver is negative for mass or bile duct dilatation. Proximal abdominal inferior vena cava normal. Hyperechoic focus in the right kidney on image 32 nonspecific. Remainder negative. IMPRESSION: 1. Gallbladder and common bile duct are within normal limits. Positive sonographic Hill`s sign was noted by the technologist. If there is concern for acalculous cholecystitis, HIDA scan could be performed in followup. 2. Small hyperechoic focus in the right kidney nonspecific. Other findings as above. Dictated by Connor Resendiz MD @ Jun 30 2018 5:33PM (Electronic Signature) Report Signed by Proxy. MULUGETA
== END 2018-06-30 18:23 | disposition home or self-care (01) ==
LOC: MW.ED 15:16
DX: R10.11 Right upper quadrant pain (principal); E11.9 Type 2 diabetes mellitus without complications
CPT/HCPCS: 36415; 76705; 80053; 81001; 81025; 83690; 85025; 96361; 96374; 96375; 99284; C9113; J1885; J2405; J7040; 99283

== ENCOUNTER 2018-07-05 09:33 | Day surgery (SDC) | payer OTHER ==
[~2018-07-05 09:33] MED LIST: Lidocaine 2% 5 ML SDV ONE; Midazolam 1 MG/ML 2 ML SDV ONE; Propofol 200 MG/20 ML SDV ONE
--- NOTE | 2018-07-05 10:35 | PCM.PREANE ---
Preanesthetic Assessment - Anesthesia/Transfusion/Family Hx Anesthesia History: Prior Anesthesia Without Reaction Family History of Anesthesia Reaction: No Transfusion History: No Prior Transfusion(s) - Review of Systems General: No Symptoms Pulmonary: No Symptoms Cardiovascular: No Symptoms Gastrointestinal: No Symptoms Neurological: No Symptoms Other: Reports: None - Physical Assessment O2 Sat by Pulse Oximetry: 98 Respiratory Rate: 16 Vital Signs: Last Vital Signs Temp 97.2 F 07/05/18 09:50 Pulse 81 07/05/18 09:50 Resp 16 07/05/18 09:50 BP 107/72 07/05/18 09:50 Pulse Ox 98 07/05/18 09:50 Height: 5 ft 2 in Weight: 66.224 kg ASA Class: 3 Mental Status: Alert & Oriented x3 Airway Class: Mallampati = 2 Dentition: Reports: Normal Dentition Thyro-Mental Finger Breadths: 3 Mouth Opening Finger Breadths: 3 ROM/Head Extension: Full Lungs: Clear to Auscultation, Normal Respiratory Effort Cardiovascular: Regular Rate, Regular Rhythm - Lab Values: Laboratory Last Values Urine HCG, Qual NEGATIVE (NEGATIVE) 07/05/18 09:50 - Allergies Allergies/Adverse Reactions: Allergies Allergy/AdvReac Type Severity Reaction Status Date / Time No Known Allergies Allergy Verified 07/04/18 11:01 - Acknowledgements Anesthesia Type Planned: MAC Pt an Appropriate Candidate for the Planned Anesthesia: Yes Alternatives and Risks of Anesthesia Discussed w Pt/Guardian: Yes Pt/Guardian Understands and Agrees with Anesthesia Plan: Yes PreAnesthesia Questionnaire HEENT History: Reports: Other (See Below) Other HEENT History: wears glasses Cardiovascular History: Reports: None Respiratory History: Reports: None Gastrointestinal History: Reports: GERD Other Gastrointestinal History: occas heartburn with Genitourinary History: Reports: None SAMPLE PULLER History: Reports: Other OB/BYN History: currently 16 weeks Musculoskeletal History: Reports: None Neurological History: Reports: None Psychiatric History: Reports: None Endocrine/Metabolic History: Reports: Diabetes, Type I (Insulin dependant) Hematologic History: Reports: None Immunologic History: Reports: None Oncologic (Cancer) History: Reports: None Dermatologic History: Reports: None - Infectious Disease History Infectious Disease History: Reports: None - Past Surgical History Head Surgeries/Procedures: Reports: None HEENT Surgical History: Reports: None Cardiovascular Surgical History: Reports: None Respiratory Surgical History: Reports: None GI Surgical History: Reports: None Female Surgical History: Reports: Section Endocrine Surgical History: Reports: None Neurological Surgical History: Reports: None Musculoskeletal Surgical History: Reports: None Dermatological Surgical History: Reports: None - SUBSTANCE USE Smoking Status *Q: Never Smoker Recreational Drug Use History: No - HOME MEDS Home Medications: Home Meds Insulin Aspart [NovoLOG] 28 unit SUBCUT TID 04/14/16 [History] Insulin Glargine,Hum.Rec.Anlog [Toujeo Solostar] 54 unit SQ ACBREAKFAST [History] Lisinopril 5 mg PO DAILY 07/04/18 [History] - CURRENT (IN HOUSE) MEDS Current Meds: Current Medications Discontinued Medications Lidocaine (Xylocaine-Mpf 2%) Confirm Administered Dose 5 ml .ROUTE .STK-MED ONE Stop: 07/05/18 07:30 Midazolam HCl (Versed 1 Mg/Ml) Confirm Administered Dose 2 mg .ROUTE .STK-MED ONE Stop: 07/05/18 07:29 Propofol (Diprivan 20 Ml) Confirm Administered Dose 200 mg .ROUTE .STK-MED ONE Stop: 07/05/18 07:29
[2018-07-05] MEDS ORDERED: Sodium Chloride 0.9% 10 ML Syringe FLUSH PRN (10:37)
[2018-07-05] MEDS ORDERED: Sodium Chloride 0.9% 2.5 ML Syringe FLUSH PRN (10:37)
[2018-07-05] MEDS ORDERED: Lactated Ringers 1,000 ML IV SCH (10:45)
--- NOTE | 2018-07-05 11:37 | PCM.OPNOTE ---
- General Post-Op/Procedure Note Date of Surgery/Procedure: 07/05/18 Operative Procedure(s): egd w bx Findings: see [id number] Pre Op Diagnosis: abd pain Post-Op Diagnosis: Same Anesthesia Technique: Moderate Sedation Primary Surgeon: Shant Talamantes Pathology: egd bx Complications: None Condition: Good
--- NOTE | 2018-07-05 12:01 | PCM.POSTAN ---
POST ANESTHESIA ASSESSMENT - MENTAL STATUS Mental Status: Alert, Oriented - RESPIRATORY Respiratory Status: Respiratory Rate WNL, Airway Patent, O2 Saturation Stable - CARDIOVASCULAR CV Status: Pulse Rate WNL, Blood Pressure Stable - GASTROINTESTINAL GI Status: No Symptoms - PAIN Pain Score: 0 - POST OP HYDRATION Hydration Status: Adequate & Stable
--- NOTE | 2018-07-05 12:13 | PCM48HPAN ---
Post Anesthesia Note - EVALUATION WITHIN 48HRS OF ANESTHETIC Vital Signs in Normal Range: Yes Patient Participated in Evaluation: Yes Respiratory Function Stable: Yes Airway Patent: Yes Cardiovascular Function Stable: Yes Hydration Status Stable: Yes Pain Control Satisfactory: Yes Nausea and Vomiting Control Satisfactory: Yes Mental Status Recovered: Yes Resp Rate: 16
[2018-07-05 12:19] VITALS: BP 121/64
--- NOTE | 2018-07-05 14:15 | OR ---
SURGEON: Shant Talamantes MD DATE OF PROCEDURE: 07/05/2018 PREOPERATIVE DIAGNOSIS: Abdominal pain. POSTOPERATIVE DIAGNOSIS: Acid reflux. PROCEDURE PERFORMED: Esophagogastroduodenoscopy with biopsy. PROCEDURE IN DETAIL: EGD: The patient was taken to the endoscopy room, and with the ACADEMIC REGISTRAR, Diprivan was administered. A well-lubricated EGD scope was gently inserted through the oropharynx, down the esophagus, passing through the gastroesophageal junction, into the stomach. The mucosa was examined upon the passage. Any etiology will be noted. Once in the stomach, we continued to advance to the distal antrum, passed through the pylorus into the second portion of the duodenum. Again, the mucosa was examined for any abnormality and etiology. The scope was then retrieved back to the stomach and then retroflexed to look at the fundus of the stomach. If a biopsy was indicated, we will biopsy the antrum, body, and gastroesophageal junction. The air will be sucked out while the scope is retrieved to reduce the patient's discomfort. The patient tolerated the procedure well. There were no intraoperative complications. Dr. Talamantes was present through the whole procedure. Prior to surgery, a time-out had been called, the patient identified, procedure identified and antibiotic administered. FINDINGS: 1. The patient is easily sedated with ACADEMIC REGISTRAR and Diprivan. The patient is soundly snoring. 2. Oropharynx and proximal esophagus were free of disease. No inflammation of stricture. Distal esophagus at GE junction at 40 shows of very minimal salmon-color changes, suggests mild acid reflux. Stomach rugae is normal in appearance. Antrum is normal. Duodenum was grossly normal. Scope retrieved back to the stomach. Retroflexed look at the fundus of stomach, there is no hiatal hernia. Biopsy done at antrum, body, GE junction at 40 and sucked out the air while scope pulling out. The patient does not have food, bile, blood, ulcer observed in the stomach. CONSTANTINE / YOHAN /[id number]
[2018-07-05] MEDS ORDERED: Benzocaine 20% Topical Spray UD MUCMEM ONE (14:58)
== END 2018-07-05 12:17 | disposition home or self-care (01) ==
LOC: MW.SDS 09:33
PROVIDERS: ATTEND Surgery
DX: K29.50 Unspecified chronic gastritis without bleeding (principal); B96.89 Other specified bacterial agents as the cause of diseases classified elsewhere; K20.9 Esophagitis, unspecified; K21.9 Gastro-esophageal reflux disease without esophagitis; E10.9 Type 1 diabetes mellitus without complications; Z79.4 Long term (current) use of insulin; Z79.899 Other long term (current) drug therapy
CPT/HCPCS: 43239; 81025; 82962; A9270; J2250; J2704; 88305; 88312

== ENCOUNTER 2020-02-12 08:10 | Emergency (ER) | payer BC ==
[2020-02-12] MEDS ORDERED: Sodium Chloride 0.9% 1,000 ML IV ONE (09:12)
[2020-02-12] MEDS ORDERED: Metoclopramide 10 MG/2 ML SDV IVPUSH ONE (09:13)
--- NOTE | 2020-02-12 09:13 | EDM.PDOC ---
ED [facility] GENERAL MEDICAL PROBLEM - General Chief Complaint: Diabetic Complaint Stated Complaint: FEELS LIE BLOOD SUGAR IS LOW Time Seen by Provider: 02/12/20 09:13 Source of Information: Reports: Patient History Limitations: Reports: No Limitations - History of Present Illness INITIAL COMMENTS - FREE TEXT/NARRATIVE: Patient is a 34-year-old female with a past medical history of diabetes presenting with a chief complaint of concerns about her blood sugar and chest discomfort. Patient states that the chest discomfort started late last night and felt like some chest tightness associated with dizziness. Patient states that she gets these symptoms when her blood sugar is low. Patient checks her blood sugar several times and found that it was in the 140s and 160s. Patient denies any syncopal episodes. Patient denies any vomiting or diarrhea. Patient denies any fevers. Patient denies any palpitations. Patient called her primary doctor who told her to come to the emergency room. Pmhx: None Pshx: None Family Hx: noncontributory Smoking history? no Etoh use? none Drug use? none In addition to that documented in the HPI above, the additional ROS was obtained : Constitutional: Denies fevers or chills Eyes: Denies vision changes ENMT: Denies sore throat CV: Per HPI Resp: Denies SOB GI: Denies vomiting or diarrhea : Denies painful urination MSK: Denies recent trauma Skin: Denies new rashes Neuro: Denies new numbness or tingling or weakness Endocrine: Denies unexpected weight loss Heme: Denies bleeding disorders I have reviewed the triage vital signs Const: Well nourished, well developed, appears stated age Eyes: PERRL, no conjunctival injection HENT: NCAT, Neck supple without meningismus CV: RRR, Warm, well-perfused extremities RESP: CTAB, Unlabored respiratory effort GI: soft, non-tender, non-distended, no masses MSK: No gross deformities appreciated Skin: Warm, dry. No rashes Neuro: Alert, willow machine tender II-XII grossly intact. Sensation and motor function of extremities grossly intact. Psych: Appropriate mood and affect Assessment and plan: Patient is a 33-year-old female presenting with dizziness and hyperglycemia. Patient had normal physical exam and no evidence of neurologic abnormalities that would be concerning for a stroke. Patient chest pain does not seem to be cardiac in nature. Patient is PERC negative. EKG demonstrates normal sinus rhythm. Initial troponin negative. Patient given IV fluids and Reglan with improvement of symptoms. Patient is not in DKA and has no electrolyte abnormalities. All questions addressed and answered. Patient will be discharged home. Middle Chest Pain Score (Numeric/FACES): 4 - Related Data Allergies Allergy/AdvReac Type Severity Reaction Status Date / Time No Known Allergies Allergy Verified 02/12/20 08:29 Home Meds: Home Meds Insulin Glargine,Hum.Rec.Anlog [Toujeo Solostar] 44 unit SQ DAILY 04/14/16 [ History] Insulin Lispro [Humalog Kwikpen U-100] 6 units SUBCUT ASDIRECTED 10/18/18 [ History] Acetaminophen [Tylenol Extra Strength] 1 tab PO ASDIRECTED PRN 10/16/19 [History ] Iron 1 tab PO DAILY 10/16/19 [History] Pnv #30/Iron Carb&Aspg/Fa/Om3 [OB Complete with DHA Softgel] 1 tab PO DAILY [History] Aspirin [Halfprin] 81 mg PO DAILY 10/28/19 [History] Insulin Aspart [NovoLOG] 1 injection SUBCUT ASDIRECTED 10/28/19 [History] Insulin Glargine,Hum.Rec.Anlog [Toujeo Solostar] 24 units SUBCUT ACBREAKFAST 09/06 [History] Past Medical History HEENT History: Reports: Impaired Vision Other HEENT History: wears glasses Cardiovascular History: Reports: None Respiratory History: Reports: None Gastrointestinal History: Reports: Other (See Below) Other Gastrointestinal History: occasional heartburn Genitourinary History: Reports: None [employer]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 Musculoskeletal History: Reports: None Neurological History: Reports: None Psychiatric History: Reports: None Endocrine/Metabolic History: Reports: Diabetes, Type II, IDDM Hematologic History: Reports: None Immunologic History: Reports: None Oncologic (Cancer) History: Reports: None Dermatologic History: Reports: None - Infectious Disease History Infectious Disease History: Reports: Chicken Pox - Past Surgical History Head Surgeries/Procedures: Reports: None HEENT Surgical History: Reports: None Cardiovascular Surgical History: Reports: None Respiratory Surgical History: Reports: None GI Surgical History: Reports: Cholecystectomy, EGD Female Surgical History: Reports: Section Neurological Surgical History: Reports: None Musculoskeletal Surgical History: Reports: None Oncologic Surgical History: Reports: None Dermatological Surgical History: Reports: None Social & Family History - Family History Family Medical History: Noncontributory OBGYN: Reports: Endocrine/Metabolic: Reports: IDDM - Tobacco Use Smoking Status *Q: Never Smoker Second Hand Smoke Exposure: No - Caffeine Use Caffeine Use: Reports: Coffee - Recreational Drug Use Recreational Drug Use: No ED ROS GENERAL - Review of Systems Review Of Systems: See Below ED EXAM GENERAL NO PERIP PULSE - Physical Exam Exam: See Below Course - Vital Signs Last Recorded V/S: Last Vital Signs Temp 36.1 C 02/12/20 09:37 Pulse 95 02/12/20 09:37 Resp 18 02/12/20 09:37 BP 111/72 02/12/20 09:37 Pulse Ox 97 02/12/20 09:37 - Orders/Labs/Meds Labs: Laboratory Tests 02/12/20 02/12/20 02/12/20 Range/Units 08:36 09:27 09:27 VBG pH 7.36 (7.31-7.41) VBG pCO2 46 H (35-45) mmHG VBG pO2 35 (30-40) mmHG VBG HCO3 26 (22-30) mEq/L VBG Total CO2 24 L (41-51) mmol/L VBG Base Excess 0 (-3.0-3.0) Sodium 139 (136-145) mmol/L Potassium 4.5 (3.5-5.1) mmol/L Chloride 105 (98-107) mmol/L Carbon Dioxide 25.5 (21.0-32.0) mmol/L BUN 11 (7.0-18.0) mg/dL Creatinine 0.7 (0.6-1.0) mg/dL Est Cr Clr Drug Dosing 90.41 mL/min Estimated GFR (MDRD) > 60.0 ml/min Glucose 228 H (74-106) mg/dL POC Glucose 223 H (60-110) mg/dL Calcium 9.4 (8.5-10.1) mg/dL Total Bilirubin 0.2 (0.2-1.0) mg/dL AST 27 (15-37) IU/L ALT 26 (14-63) IU/L Alkaline Phosphatase 86 (46-116) U/L Troponin I < 0.050 (0.000-0.056) ng/mL Total Protein 7.8 (6.4-8.2) g/dL Albumin 3.9 (3.4-5.0) g/dL Globulin 3.9 (2.6-4.0) g/dL Albumin/Globulin Ratio 1.0 (0.9-1.6) Meds: Medications Discontinued Medications Generic Name Dose Route Start Last Admin Trade Name Lolis PRN Reason Stop Dose Admin Sodium Chloride 1,000 mls @ 1,000 mls/hr 02/12/20 09:12 02/12/20 09:30 Normal Saline IV 02/12/20 10:11 1,000 mls/hr .Bolus ONE Administration Metoclopramide HCl 10 mg 02/12/20 09:13 02/12/20 09:34 Reglan IVPUSH 02/12/20 09:14 10 mg ONETIME ONE Administration Departure - Departure Time of Disposition: 10:11 Disposition: Home, Self-Care 01 Clinical Impression: Hyperglycemia - Discharge Information Instructions: Hyperglycemia, [id number]-Efco Referrals: Ricky Drew MD [Primary Care Provider] - Forms: ED Department Discharge Additional Instructions: The following information is given to patients seen in the emergency department who are being discharged to home. This information is to outline your options for follow-up care. We provide all patients seen in our emergency department with a follow-up referral. The need for follow-up, as well as the timing and circumstances, are variable depending upon the specifics of your emergency department visit. If you don't have a primary care physician on staff, we will provide you with a referral. We always advise you to contact your personal physician following an emergency department visit to inform them of the circumstance of the visit and for follow-up with them and/or the need for any referrals to a consulting specialist. The emergency department will also refer you to a specialist when appropriate. This referral assures that you have the opportunity for follow-up care with a specialist. All of these measure are taken in an effort to provide you with optimal care, which includes your follow-up. Under all circumstances we always encourage you to contact your private physician who remains a resource for coordinating your care. When calling for follow-up care, please make the office aware that this follow-up is from your recent emergency room visit. If for any reason you are refused follow-up, please contact the [facility] Emergency Department at and asked to speak to the emergency department charge nurse. Sepsis Event Note - Evaluation Sepsis Screening Result: No Definite Risk - Focused Exam Vital Signs: Vital Signs Temp Pulse Resp BP Pulse Ox 02/12/20 09:37 36.1 C 95 18 111/72 97 02/12/20 08:24 36.2 C 91 18 128/74 98 Date Exam was Performed: 02/12/20 Time Exam was Performed: 10:20
[2020-02-12 10:10] LABS: BLOOD UREA NITROGEN,BUN 11 mg/dL (7.0-18.0); CARBON DIOXIDE,CO2 25.5 mmol/L (21.0-32.0); CHLORIDE,CL 105 mmol/L (98-107); GLUCOSE RANDOM 228 mg/dL (74-106); POTASSIUM,K 4.5 mmol/L (3.5-5.1); SODIUM,NA 139 mmol/L (136-145)
[2020-02-12 10:37] VITALS: BP 114/76; PULSE 84
== END 2020-02-12 10:37 | disposition home or self-care (01) ==
LOC: MW.ED 08:10
DX: E11.65 Type 2 diabetes mellitus with hyperglycemia (principal); Z79.899 Other long term (current) drug therapy; Z79.4 Long term (current) use of insulin; Z79.82 Long term (current) use of aspirin
CPT/HCPCS: 36415; 80053; 82803; 82962; 84484; 93005; 96361; 96374; 99285; J2765; J7030

== ENCOUNTER 2020-05-13 08:53 | Day surgery (SDC) | payer BC, OTHER ==
[~2020-05-13 08:53] MED LIST changes: +Lactated Ringers 1,000 ML IV SCH; -Lidocaine 2% 5 ML SDV ONE; +Ondansetron 4 MG/2 ML SDV ONE; +Sodium Chloride 0.9% 10 ML SDV IV PRN; +Sodium Chloride 0.9% 10 ML Syringe FLUSH PRN; +Sodium Chloride 0.9% 2.5 ML Syringe FLUSH PRN; +fentaNYL 100 MCG/2 ML SDV ONE
--- NOTE | 2020-05-13 09:49 | PCM.PREANE ---
Preanesthetic Assessment - Anesthesia/Transfusion/Family Hx Anesthesia History: Prior Anesthesia Without Reaction Family History of Anesthesia Reaction: No Transfusion History: No Prior Transfusion(s) Intubation History: Unknown - Review of Systems General: No Symptoms Pulmonary: No Symptoms Cardiovascular: No Symptoms Gastrointestinal: Abdominal Pain, Other (abd. bloating, abd. fullness) Neurological: No Symptoms Other: Reports: None - Physical Assessment Vital Signs: Last Vital Signs Temp 36.4 C 05/13/20 09:19 Pulse 90 05/13/20 09:19 Resp 14 05/13/20 09:19 BP 118/75 05/13/20 09:19 Pulse Ox 99 05/13/20 09:19 Height: 5 ft 2 in Weight: 63.957 kg ASA Class: 2 Mental Status: Alert & Oriented x3 Airway Class: Mallampati = 2 Dentition: Reports: Normal Dentition Thyro-Mental Finger Breadths: 3 Mouth Opening Finger Breadths: 3 ROM/Head Extension: Full Lungs: Clear to Auscultation, Normal Respiratory Effort Cardiovascular: Regular Rate, Regular Rhythm - Lab Values: Laboratory Last Values POC Glucose 115 mg/dL (60-110) H 05/13/20 09:13 - Allergies Allergies/Adverse Reactions: Allergies Allergy/AdvReac Type Severity Reaction Status Date / Time No Known Allergies Allergy Verified 05/06/20 15:46 - Blood Blood Available: No - Anesthesia Plan Pre-Op Medication Ordered: None - Acknowledgements Anesthesia Type Planned: MAC Pt an Appropriate Candidate for the Planned Anesthesia: Yes Alternatives and Risks of Anesthesia Discussed w Pt/Guardian: Yes Pt/Guardian Understands and Agrees with Anesthesia Plan: Yes PreAnesthesia Questionnaire HEENT History: Reports: Impaired Vision Other HEENT History: wears glasses Cardiovascular History: Reports: None Respiratory History: Reports: None Gastrointestinal History: Reports: Gastritis, GERD, Helicobacter Pylori Genitourinary History: Reports: None PET SITTING History: Reports: Other (See Below), Other 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 Musculoskeletal History: Reports: None Neurological History: Reports: None Psychiatric History: Reports: None Endocrine/Metabolic History: Reports: Diabetes, Type II, IDDM Hematologic History: Reports: None Immunologic History: Reports: None Oncologic (Cancer) History: Reports: None Dermatologic History: Reports: None - Infectious Disease History Infectious Disease History: Reports: Chicken Pox - Past Surgical History Head Surgeries/Procedures: Reports: None HEENT Surgical History: Reports: None Cardiovascular Surgical History: Reports: None Respiratory Surgical History: Reports: None GI Surgical History: Reports: Cholecystectomy, EGD Female Surgical History: Reports: Section (x3) Other Female Surgeries/Procedures: c/section x2 Endocrine Surgical History: Reports: None Neurological Surgical History: Reports: None Musculoskeletal Surgical History: Reports: None Oncologic Surgical History: Reports: None Dermatological Surgical History: Reports: None - SUBSTANCE USE Smoking Status *Q: Never Smoker Recreational Drug Use History: No - HOME MEDS Home Medications: Home Meds Insulin Lispro [Humalog Kwikpen U-100] 6 units SUBCUT ASDIRECTED 10/18/18 [History] Pantoprazole Sodium [Protonix] 40 mg PO DAILY 05/06/20 [History] Insulin Glargine,Hum.Rec.Anlog [Toujeo Solostar] 48 units SUBCUT ACBREAKFAST 05/07/20 [History] - CURRENT (IN HOUSE) MEDS Current Meds: Current Medications Lactated Ringer's (Ringers, Lactated) 1,000 mls @ 125 mls/hr IV ASDIRECTED MILLA Last Admin: 05/13/20 09:27 Dose: 125 mls/hr Documented by: Sodium Chloride (Normal Saline) 10 ml IV ASDIRECTED PRN PRN Reason: IV Use Sodium Chloride (Saline Flush) 10 ml FLUSH ASDIRECTED PRN PRN Reason: Keep Vein Open Sodium Chloride (Saline Flush) 2.5 ml FLUSH ASDIRECTED PRN PRN Reason: Keep Vein Open Discontinued Medications Fentanyl (Sublimaze) Confirm Administered Dose 100 mcg .ROUTE .STK-MED ONE Stop: 05/13/20 08:47 Lidocaine HCl (Xylocaine-Mpf 1%) Confirm Administered Dose 5 ml .ROUTE .STK-MED ONE Stop: 05/13/20 08:46 Midazolam HCl (Versed 1 Mg/Ml) Confirm Administered Dose 2 mg .ROUTE .STK-MED ONE Stop: 05/13/20 08:47 Ondansetron HCl (Zofran) Confirm Administered Dose 4 mg .ROUTE .STK-MED ONE Stop: 05/13/20 08:46 Propofol (Diprivan 20 Ml) Confirm Administered Dose 200 mg .ROUTE .STK-MED ONE Stop: 05/13/20 08:46
--- NOTE | 2020-05-13 12:02 | PCM.POSTAN ---
POST ANESTHESIA ASSESSMENT - MENTAL STATUS Mental Status: Alert - VITAL SIGNS Vital Signs: Last Vital Signs Temp 36.4 C 05/13/20 09:19 Pulse 90 05/13/20 09:19 Resp 14 05/13/20 09:19 BP 118/75 05/13/20 09:19 Pulse Ox 99 05/13/20 09:19 - RESPIRATORY Respiratory Status: Respiratory Rate WNL - CARDIOVASCULAR CV Status: Pulse Rate WNL - GASTROINTESTINAL GI Status: No Symptoms - PAIN Pain Score: 0 - POST OP HYDRATION Hydration Status: Adequate & Stable (Doing well.)
[2020-05-13 12:20] VITALS: BP 107/67; PULSE 77
--- NOTE | 2020-05-13 12:27 | PCM.OPNOTE ---
- General Post-Op/Procedure Note Date of Surgery/Procedure: 05/13/20 Operative Procedure(s): Diagnostic EGD Findings: Normal appearing EGD Pre Op Diagnosis: History of gastritis Post-Op Diagnosis: Normal appearing EGD Anesthesia Technique: PATRICE Primary Surgeon: Grecia Still Condition: Good Free Text/Narrative:: Intake & Output 05/12/20 05/13/20 05/13/20 22:59 06:59 14:59 Intake Total 800 Balance 800
--- NOTE | 2020-05-13 12:43 | PCM48HPAN ---
Post Anesthesia Note - EVALUATION WITHIN 48HRS OF ANESTHETIC Vital Signs in Normal Range: Yes Patient Participated in Evaluation: Yes Respiratory Function Stable: Yes Airway Patent: Yes Cardiovascular Function Stable: Yes Hydration Status Stable: Yes Pain Control Satisfactory: Yes Nausea and Vomiting Control Satisfactory: Yes Mental Status Recovered: Yes Vital Signs: Last Vital Signs Temp 36 C L 05/13/20 12:10 Pulse 77 05/13/20 12:10 Resp 14 05/13/20 12:10 BP 107/67 05/13/20 12:10 Pulse Ox 97 05/13/20 12:10 - COMMENTS/OBSERVATIONS Free Text/Narrative:: No anesthesia problems
--- NOTE | 2020-05-13 20:49 | OR ---
SURGEON: GRECIA STILL MD DATE OF PROCEDURE: 05/13/2020 PREOPERATIVE DIAGNOSIS: History of gastritis and Helicobacter pylori infection. POSTOPERATIVE DIAGNOSIS: History of gastritis and Helicobacter pylori infection. PROCEDURE PERFORMED: Diagnostic esophagogastroduodenoscopy with biopsy. PRIMARY SURGEON: Grecia Still MD ANESTHESIA: MAC. INSTRUMENT USED: Olympus endoscope. EXTENT OF EXAM: To the second portion of duodenum. PREPARATION: Good. LIMITATIONS: None. INDICATIONS FOR EXAMINATION: The patient is a 34-year-old female who has a past medical history significant for H. pylori associated with gastritis of the stomach. She also has a history of biliary dyskinesia. She has been having more epigastric discomfort as well as postprandial bloating. The patient and I discussed the need for a diagnostic EGD. I explained the procedure, expected perioperative course, and the risks. She verbalized understanding and wishes to proceed. PROCEDURE IN DETAIL: The patient was brought into the OR and placed on the table in a beach chair position. A time-out was completed verifying the patient's name, age, date of , allergies, and procedure to be performed. A bite block was placed in the patient's mouth. Monitored anesthesia care was induced and continuous oxygen was provided via nasal cannula throughout the procedure. After adequate sedation was achieved, a well-lubricated endoscope was placed in the patient's mouth and advanced under direct visualization to the second portion of duodenum. This appeared normal and a photograph was taken. The scope was then fully withdrawn while examining the upper GI mucosa. The duodenum appeared normal. The scope was brought into the stomach and a photograph was taken of the pylorus and GE junction. Both appeared structurally normal. Biopsies were taken of the gastric antrum, body, and fundus and sent for histologic review and H. pylori testing. The scope was brought into the distal esophagus and a photograph was taken of normal-appearing Z-line. The remainder of the esophageal mucosa appeared normal. The scope was removed and the procedure terminated. The patient tolerated the procedure well and was transferred to the PACU in stable condition. ENDOSCOPIC DIAGNOSIS: Normal appearing esophagogastroduodenoscopy. RECOMMENDATIONS: Follow up in clinic in 2 weeks to discuss pathology results and any next steps in treatment. MICHAEL / YONISL /[id number]
== END 2020-05-13 13:00 | disposition home or self-care (01) ==
LOC: MW.SDS 08:53
PROVIDERS: ATTEND Surgery
DX: R10.13 Epigastric pain (principal); R14.0 Abdominal distension (gaseous); E11.9 Type 2 diabetes mellitus without complications; K21.9 Gastro-esophageal reflux disease without esophagitis; Z87.19 Personal history of other diseases of the digestive system; Z86.19 Personal history of other infectious and parasitic diseases; Z98.890 Other specified postprocedural states; Z79.4 Long term (current) use of insulin; Z79.899 Other long term (current) drug therapy
CPT/HCPCS: 43239; 81025; 82962; J2001; J2250; J2405; J2704; J3010; J7120; 88305; 88312

== ENCOUNTER 2020-07-10 17:57 | Emergency (ER) | payer BC, OTHER, SELFPAY ==
[2020-07-10] MEDS ORDERED: Sodium Chloride 0.9% 10 ML Syringe FLUSH PRN (18:22)
[2020-07-10] MEDS ORDERED: Sodium Chloride 0.9% 2.5 ML Syringe FLUSH PRN ×2 (18:22)
[2020-07-10] MEDS ORDERED: Aspirin 81 MG Tab.Chew PO ONE (18:22)
[2020-07-10] MEDS ORDERED: Famotidine 20 MG/2 ML SDV IVPUSH ONE (18:22)
--- NOTE | 2020-07-10 18:28 | EDM.PDOC ---
<AlbertFlakito quiroz Tina - Last Filed: 07/10/20 18:42> ED HPI GENERAL MEDICAL PROBLEM - General Chief Complaint: Cardiovascular Problem Stated Complaint: DIZZINESS Time Seen by Provider: 07/10/20 18:30 - History of Present Illness INITIAL COMMENTS - FREE TEXT/NARRATIVE: History of present illness: Patient presents with a variety of symptoms including dizziness which she describes as both falling over and feeling like she is going to pass out without headache or trouble with her vision she also complains of nausea and reflux she is also been having some chest pain which she describes as burning and pressure she has been having tingling and numbness in both of her legs especially when she wakes up in the middle the night because she gets hungry. She denies any shortness of breath there is been no focal weakness no blurred vision no headache nothing seems to make the symptoms better or worse Review of systems: As per history of present illness and below otherwise all systems reviewed and negative. Past medical history: As per history of present illness and as reviewed below otherwise noncontributory. Surgical history: As per history of present illness and as reviewed below otherwise noncontri butory. Social history: No reported history of drug or alcohol abuse. Family history: As per history of present illness and as reviewed below otherwise noncontributory. Physical exam: HEENT: Atraumatic, normocephalic, pupils reactive, negative for conjunctival pallor or scleral icterus, mucous membranes moist, throat clear, neck supple, nontender, trachea midline. Lungs: Clear to auscultation, breath sounds equal bilaterally, chest nontender. Heart: S1S2, regular, negative for clicks, rubs, or JVD. Abdomen: Soft, nondistended, nontender. Negative for masses or hepatosplenomegaly. Negative for costovertebral tenderness. Pelvis: Stable nontender. Genitourinary: Deferred. Rectal: Deferred. Extremities: Atraumatic, negative for cords or calf pain. Neurovascular unremarkable. Neuro: Awake, alert, oriented. Cranial nerves II through XII unremarkable. Cerebellum unremarkable. Motor and sensory unremarkable throughout. Exam nonfocal. No pronator drift Diagnostics: [] Therapeutics: [] Impression: Dizziness and chest pain. [] Plan: Cardiac work-up some Pepcid for reflux reassess the patient. [] Definitive disposition and diagnosis as appropriate pending reevaluation and review of above. Generalized Pain Score (Numeric/FACES): 1 - Related Data Allergies Allergy/AdvReac Type Severity Reaction Status Date / Time No Known Allergies Allergy Verified 07/10/20 18:09 Home Meds: Home Meds Empagliflozin [Jardiance] 25 mg PO BTNUNITS 07/10/20 [History] Escitalopram [Lexapro] 10 mg PO DAILY 07/10/20 [History] Meclizine [Antivert] 25 mg PO Q6H PRN #20 tab 07/10/20 [Rx] metFORMIN [Glucophage XR] 500 mg PO BID 07/10/20 [History] Past Medical History HEENT History: Reports: Impaired Vision Other HEENT History: wears glasses Cardiovascular History: Reports: None Respiratory History: Reports: None Gastrointestinal History: Reports: Gastritis, GERD, Helicobacter Pylori Genitourinary History: Reports: None 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 Musculoskeletal History: Reports: None Neurological History: Reports: None Psychiatric History: Reports: None, Anxiety Endocrine/Metabolic History: Reports: Diabetes, Type II, IDDM Hematologic History: Reports: None Immunologic History: Reports: None Oncologic (Cancer) History: Reports: None Dermatologic History: Reports: None - Infectious Disease History Infectious Disease History: Reports: Chicken Pox - Past Surgical History Head Surgeries/Procedures: Reports: None HEENT Surgical History: Reports: None Cardiovascular Surgical History: Reports: None Respiratory Surgical History: Reports: None GI Surgical History: Reports: Cholecystectomy, EGD Female Surgical History: Reports: Section Other Female Surgeries/Procedures: c/section x2 Endocrine Surgical History: Reports: None Neurological Surgical History: Reports: None Musculoskeletal Surgical History: Reports: None Oncologic Surgical History: Reports: None Dermatological Surgical History: Reports: None Social & Family History - Family History Family Medical History: Noncontributory OBGYN: Reports: Endocrine/Metabolic: Reports: IDDM - Caffeine Use Caffeine Use: Reports: Tea - Recreational Drug Use Recreational Drug Use: No ED ROS GENERAL - Review of Systems Review Of Systems: See Below ED EXAM, GENERAL - Physical Exam Exam: See Below EKG INTERPRETATION EKG Interpretation Comments: EKG is normal sinus rhythm 88 bpm left anterior fascicular block no ischemic changes read and interpreted by me Departure - Departure Disposition: Home, Self-Care 01 Clinical Impression: Dizziness, Impacted cerumen, right ear Prescriptions: Meclizine [Antivert] 25 mg PO Q6H PRN #20 tab PRN Reason: Dizziness Instructions: Earwax Buildup, Adult, Ear Drops, Adult, [id number], Vertigo, [id number], Ear Irrigation, Dizziness Referrals: Burt Sanchez MD [Primary Care Provider] - 2 Days Forms: ED Department Discharge Additional Instructions: You may take the meclizine as needed for dizziness symptoms. Please be sure to stay well-hydrated and get plenty of rest. If you develop any weakness or numbness of your arms or legs or difficulty speaking or walking, please return to the emergency department immediately. Please follow-up with your primary care physician in 1 to 2 days, or 1 of the primary care clinics listed below. The following information is given to patients seen in the emergency department who are being discharged to home. This information is to outline your options for follow-up care. We provide all patients seen in our emergency department with a follow-up referral. The need for follow-up, as well as the timing and circumstances, are variable depending upon the specifics of your emergency department visit. If you don't have a primary care physician on staff, we will provide you with a referral. We always advise you to contact your personal physician following an emergency department visit to inform them of the circumstance of the visit and for follow-up with them and/or the need for any referrals to a consulting specialist. The emergency department will also refer you to a specialist when appropriate. This referral assures that you have the opportunity for follow-up care with a specialist. All of these measure are taken in an effort to provide you with optimal care, which includes your follow-up. Under all circumstances we always encourage you to contact your private physician who remains a resource for coordinating your care. When calling for follow-up care, please make the office aware that this follow-up is from your recent emergency room visit. If for any reason you are refused follow-up, please contact the [facility] Emergency Department at and asked to speak to the emergency department charge nurse. [facility] - Primary Care [address] [place] [id number] [facility] [address] [place] [id number] Sepsis Event Note (ED) - Evaluation Sepsis Screening Result: No Definite Risk <Consuelo Garcia - Last Filed: 07/11/20 00:44> ED ROS GENERAL - Review of Systems Review Of Systems: See Below ED EXAM, GENERAL - Physical Exam General Appearance: Alert, WD/WN, No Apparent Distress Ear Exam: Right Ear: Foreign Body (cerumen obstruction), Left Ear: TM normal, Bilateral Ear: Auricle Normal, Canal Normal Respiratory/Chest: No Respiratory Distress Neurological: Alert, Oriented, Normal Cognition, Normal Gait, No Motor/Sensory Deficits Psychiatric: Normal Affect, Normal Mood Course - Vital Signs Text/Narrative:: Patient received in signout pending lab and x-ray results. Patient presenting with what sounds to be lightheadedness/dizziness/vertigo type symptoms. Also having some chest discomfort. No significant past medical history other than diabetes. On metformin BID Labs, x-ray and EKG unremarkable. Still symptomatic dizziness, chest discomfort is resolved. We will repeat troponin. Will give IV fluids and meclizine. Will check CT brain. No neurologic deficits. Right ear obstructed by wax. Much improvement after IV fluids and meclizine. CT scan negative for any signs of bleeding or stroke. Repeat troponin negative. Will discharge with meclizine prescription. Nursing was able to remove large amount of wax from the right ear. Patient felt much better. Last Recorded V/S: Last Vital Signs Temp 98.1 F 07/10/20 23:09 Pulse 77 07/10/20 23:09 Resp 16 07/10/20 23:09 BP 114/73 07/10/20 23:09 Pulse Ox 98 07/10/20 23:09 - Orders/Labs/Meds Orders: Active Orders 24 hr Category Date Time Status Saline Lock Insert [OM.PC] Stat Oth 07/10/20 18:22 Ordered Labs: Laboratory Tests 07/10/20 07/10/20 07/10/20 Range/Units 18:20 18:20 18:25 WBC 5.71 (4.0-11.0) K/uL RBC 4.10 L (4.30-5.90) M/uL Hgb 12.5 (12.0-16.0) g/dL Hct 36.6 (36.0-46.0) % MCV 89.3 (80.0-98.0) fL MCH 30.5 (27.0-32.0) pg MCHC 34.2 (31.0-37.0) g/dL RDW Std Deviation 44.2 (28.0-62.0) fl RDW Coeff of Puneet 14 (11.0-15.0) % Plt Count 258 (150-400) K/uL MPV 9.70 (7.40-12.00) fL Neut % (Auto) 48.5 (48.0-80.0) % Lymph % (Auto) 41.7 H (16.0-40.0) % [place] % (Auto) 7.5 (0.0-15.0) % Eos % (Auto) 1.9 (0.0-7.0) % Baso % (Auto) 0.4 (0.0-1.5) % Neut # (Auto) 2.8 (1.4-5.7) K/uL Lymph # (Auto) 2.4 (0.6-2.4) K/uL [place] # (Auto) 0.4 (0.0-0.8) K/uL Eos # (Auto) 0.1 (0.0-0.7) K/uL Baso # (Auto) 0.0 (0.0-0.1) K/uL Nucleated RBC % 0.0 /100WBC Nucleated RBCs # 0 K/uL Sodium 138 (136-145) mmol/L Potassium 4.1 (3.5-5.1) mmol/L Chloride 104 (98-107) mmol/L Carbon Dioxide 24.4 (21.0-32.0) mmol/L BUN 12 (7.0-18.0) mg/dL Creatinine 1.1 H (0.6-1.0) mg/dL Est Cr Clr Drug Dosing 57.53 mL/min Estimated GFR (MDRD) > 60.0 ml/min Glucose 209 H (74-106) mg/dL POC Glucose (60-110) mg/dL Calcium 8.9 (8.5-10.1) mg/dL Total Bilirubin 0.2 (0.2-1.0) mg/dL AST 19 (15-37) IU/L ALT 25 (14-63) IU/L Alkaline Phosphatase 96 (46-116) U/L Troponin I < 0.050 (0.000-0.056) ng/mL Total Protein 7.4 (6.4-8.2) g/dL Albumin 3.9 (3.4-5.0) g/dL Globulin 3.5 (2.6-4.0) g/dL Albumin/Globulin Ratio 1.1 (0.9-1.6) Urine Color YELLOW Urine Appearance CLEAR Urine pH 6.0 (5.0-8.0) Ur Specific [place] 1.010 (1.001-1.035) Urine Protein NEGATIVE (NEGATIVE) mg/dL Urine Glucose (UA) >=1000 (NEGATIVE) mg/dL Urine Ketones NEGATIVE (NEGATIVE) mg/dL Urine Occult Blood NEGATIVE (NEGATIVE) Urine Nitrite NEGATIVE (NEGATIVE) Urine Bilirubin NEGATIVE (NEGATIVE) Urine Urobilinogen 0.2 (<2.0) EU/dL Ur Leukocyte Esterase NEGATIVE (NEGATIVE) Urine HCG, Qual (NEGATIVE) 07/10/20 07/10/20 07/10/20 Range/Units 18:25 20:15 21:51 WBC (4.0-11.0) K/uL RBC (4.30-5.90) M/uL Hgb (12.0-16.0) g/dL Hct (36.0-46.0) % MCV (80.0-98.0) fL MCH (27.0-32.0) pg MCHC (31.0-37.0) g/dL RDW Std Deviation (28.0-62.0) fl RDW Coeff of Puneet (11.0-15.0) % Plt Count (150-400) K/uL MPV (7.40-12.00) fL Neut % (Auto) (48.0-80.0) % Lymph % (Auto) (16.0-40.0) % [place] % (Auto) (0.0-15.0) % Eos % (Auto) (0.0-7.0) % Baso % (Auto) (0.0-1.5) % Neut # (Auto) (1.4-5.7) K/uL Lymph # (Auto) (0.6-2.4) K/uL [place] # (Auto) (0.0-0.8) K/uL Eos # (Auto) (0.0-0.7) K/uL Baso # (Auto) (0.0-0.1) K/uL Nucleated RBC % /100WBC Nucleated RBCs # K/uL Sodium (136-145) mmol/L Potassium (3.5-5.1) mmol/L Chloride (98-107) mmol/L Carbon Dioxide (21.0-32.0) mmol/L BUN (7.0-18.0) mg/dL Creatinine (0.6-1.0) mg/dL Est Cr Clr Drug Dosing mL/min Estimated GFR (MDRD) ml/min Glucose (74-106) mg/dL POC Glucose 140 H (60-110) mg/dL Calcium (8.5-10.1) mg/dL Total Bilirubin (0.2-1.0) mg/dL AST (15-37) IU/L ALT (14-63) IU/L Alkaline Phosphatase (46-116) U/L Troponin I < 0.050 (0.000-0.056) ng/mL Total Protein (6.4-8.2) g/dL Albumin (3.4-5.0) g/dL Globulin (2.6-4.0) g/dL Albumin/Globulin Ratio (0.9-1.6) Urine Color Urine Appearance Urine pH (5.0-8.0) Ur Specific [place] (1.001-1.035) Urine Protein (NEGATIVE) mg/dL Urine Glucose (UA) (NEGATIVE) mg/dL Urine Ketones (NEGATIVE) mg/dL Urine Occult Blood (NEGATIVE) Urine Nitrite (NEGATIVE) Urine Bilirubin (NEGATIVE) Urine Urobilinogen (<2.0) EU/dL Ur Leukocyte Esterase (NEGATIVE) Urine HCG, Qual NEGATIVE (NEGATIVE) Meds: Medications Discontinued Medications Generic Name Dose Route Start Last Admin Trade Name Freq PRN Reason Stop Dose Admin Aspirin 324 mg 07/10/20 18:22 07/10/20 18:32 Aspirin PO 07/10/20 18:23 324 mg ONETIME ONE Administration Docusate Sodium 50 mg 07/10/20 21:33 07/10/20 21:44 Colace 50 Mg/5 Ml Liquid .XX 07/10/20 21:34 50 mg ONETIME ONE Administration Famotidine 20 mg 07/10/20 18:22 07/10/20 18:32 Pepcid IVPUSH 07/10/20 18:23 20 mg ONETIME ONE Administration Sodium Chloride 1,000 mls @ 999 mls/hr 07/10/20 20:07 07/10/20 20:13 Normal Saline IV 07/10/20 21:07 999 mls/hr .Bolus ONE Administration Meclizine HCl 25 mg 07/10/20 20:07 07/10/20 20:14 Antivert PO 07/10/20 20:08 25 mg ONETIME ONE Administration Meclizine HCl 25 mg 07/10/20 23:07 07/10/20 23:10 Antivert PO 07/10/20 23:08 25 mg ONETIME ONE Administration Meclizine HCl Confirm 07/10/20 23:08 Antivert Administered 07/10/20 23:09 Dose 25 mg .ROUTE .STK-MED ONE Ondansetron HCl 4 mg 07/10/20 21:34 07/10/20 21:44 Zofran IVPUSH 07/10/20 21:35 4 mg ONETIME ONE Administration Sodium Chloride 10 ml 07/10/20 18:22 07/10/20 18:41 Saline Flush FLUSH 10 ml ASDIRECTED PRN Administration Keep Vein Open Sodium Chloride 2.5 ml 07/10/20 18:22 07/10/20 18:41 Saline Flush FLUSH 2.5 ml ASDIRECTED PRN Administration Keep Vein Open Sodium Chloride 2.5 ml 07/10/20 18:22 07/10/20 18:41 Saline Flush FLUSH 2.5 ml ASDIRECTED PRN Administration Keep Vein Open - Re-Assessments/Exams Free Text/Narrative Re-Assessment/Exam: 07/10/20 20:07 I reassessed and reexamined the patient. Discussed her lab and x-ray results. She does report that she is still feeling dizzy. We did trial ambulation and she was able to work steadily without any ataxia, however she did report that her symptoms worsened and she felt more lightheaded/dizzy while attempting to ambulate. We did check [id number] as well which was normal during rapid hand movements. Will check CT brain and give IV fluids and meclizine dose. I did examine the patient's ears as she has reported having some ear pain. Left TM unremarkable and right TM shows complete obstruction by cerumen, therefore we will attempt to irrigate/remove/extract cerumen and reassess her symptoms. 07/10/20 21:17 Patient is feeling much better after IV fluids and meclizine. She was able to ambulate to the bathroom without any difficulty, ataxia, or symptoms of dizziness. Discussed plan of care including will discharge with meclizine. The nurse will now irrigate/remove the wax from her ear. 07/10/20 22:57 The patient is now feeling better after several rounds of irrigating her ear with removal of wax. Dizziness is resolved. She would like to be discharged. Departure - Departure Time of Disposition: 22:58 Preliminary Cause of *Q: Other_Special Instruction (N/A) Reason for Transfer *Q: Other (n/a) Sepsis Event Note (ED) - Focused Exam Vital Signs: Vital Signs Temp Pulse Resp BP Pulse Ox 07/10/20 23:09 98.1 F 77 16 114/73 98 07/10/20 21:52 70 14 111/75 98 07/10/20 19:35 96.1 F L 91 16 109/71 98 07/10/20 18:11 96.0 F L 85 20 116/80 97
[2020-07-10 18:53] LABS: BLOOD UREA NITROGEN,BUN 12 mg/dL (7.0-18.0); CARBON DIOXIDE,CO2 24.4 mmol/L (21.0-32.0); CHLORIDE,CL 104 mmol/L (98-107); GLUCOSE RANDOM 209 mg/dL (74-106); POTASSIUM,K 4.1 mmol/L (3.5-5.1); SODIUM,NA 138 mmol/L (136-145)
--- NOTE | 2020-07-10 19:04 | CR ---
INDICATION: Pt w/chest pain. CHEST, ONE VIEW An AP radiograph of the chest was performed. Comparison: 10/19/2017. The lungs appear clear and no pleural effusions are identified. The cardiomediastinal silhouette and pulmonary vasculature appear normal, as do the visualized bones. IMPRESSION: No acute intrathoracic abnormality identified. FRANCOISE GREENE MD [facility] Dictated by: Castro Greene MD @ 07/10/2020 19:02:46 (Electronically Signed)
[2020-07-10] MEDS ORDERED: Sodium Chloride 0.9% 1,000 ML IV ONE (20:07)
[2020-07-10] MEDS ORDERED: Meclizine 25 MG Tab PO ONE ×2 (20:07→23:07)
--- NOTE | 2020-07-10 20:42 | CT ---
INDICATION: Dizziness TECHNIQUE: CT head without contrast. COMPARISON: None. FINDINGS: CSF spaces: Within normal limits for age. Brain parenchyma and extra-axial spaces: The kwong-white differentiation is normal. No sign of mass, hemorrhage, or midline shift. No extra-axial fluid collection. Skull base and calvarium: The visualized paranasal sinuses and mastoid air cells demonstrate no acute or significant findings. The visualized orbits are grossly unremarkable. No skull fractures. IMPRESSION: Unremarkable noncontrast head CT. Please note that all CT scans at this facility use dose modulation, iterative reconstruction, and/or weight-based dosing when appropriate to reduce radiation dose to as low as reasonably achievable. Dictated by Reji Lazo MD @ Jul 10 2020 8:38PM Signed by Dr. Reji Lazo @ Jul 10 2020 8:41PM
[2020-07-10] MEDS ORDERED: Docusate Sodium Liquid 100 MG/10 ML UD Cup ONE (21:33)
[2020-07-10] MEDS ORDERED: Ondansetron 4 MG/2 ML SDV IVPUSH ONE (21:34)
[2020-07-10] MEDS ORDERED: Meclizine 25 MG Tab ONE (23:08)
[2020-07-10 23:10] VITALS: BP 114/73; PULSE 77
== END 2020-07-10 23:06 | disposition home or self-care (01) ==
LOC: MW.ED 17:57
DX: H61.21 Impacted cerumen, right ear (principal); F41.9 Anxiety disorder, unspecified; E11.9 Type 2 diabetes mellitus without complications; Z79.84 Long term (current) use of oral hypoglycemic drugs; Z79.899 Other long term (current) drug therapy
CPT/HCPCS: 36415; 70450; 71045; 80053; 81003; 81025; 82962; 84484; 85025; 93005; 96361; 96374; 96375; 99284; A9270; J2405; J3490; J7030

== ENCOUNTER 2020-07-13 03:19 | Observation (INO) | payer BC, OTHER ==
[2020-07-13] MEDS ORDERED: Meclizine 25 MG Tab PO ONE (03:35)
[2020-07-13] MEDS ORDERED: Alum Hydrox/Mag Hydrox/Simeth 15 ML, Lidocaine 2% 5 ML PO ONE ×2 (03:55)
[2020-07-13] MEDS ORDERED: Ondansetron 4 MG Tab.DIS PO ONE (03:55)
--- NOTE | 2020-07-13 04:00 | EDM.PDOC ---
ED HPI GENERAL MEDICAL PROBLEM - General Chief Complaint: General Stated Complaint: NAUSEATED, DIZZY Time Seen by Provider: 07/13/20 03:34 Source of Information: Reports: Patient - History of Present Illness INITIAL COMMENTS - FREE TEXT/NARRATIVE: History of present illness: 34-year-old female presenting with ongoing dizziness. She was seen here 2 days ago by me for dizziness and had blood work, EKG and CT scan, all of which were unremarkable. She did have a wax obstruction in her right ear which was removed. She was prescribed meclizine. She reports her dizziness has been ongoing. She just picked up the prescription for meclizine yesterday and took only 1 dose around 1 PM. Then around midnight she awoke again with dizziness which has been ongoing and so she came back here. There is associated with some nausea. She is having some epigastric area discomfort as well. She reports that symptoms seem to improve after she eats something and she is concerned that her glucose may drop. She has been checking her glucose multiple times per day and it has been in the 100s recently. She is a diabetic and takes metformin. Review of systems: As per history of present illness and below otherwise all systems reviewed and negative. Past medical history: As per history of present illness and as reviewed below otherwise noncontributory. Surgical history: As per history of present illness and as reviewed below otherwise noncontributory. Social history: No reported history of drug or alcohol abuse. Family history: As per history of present illness and as reviewed below otherwise noncontributory. Physical exam: GEN: no acute distress, well appearing HEENT: Atraumatic, normocephalic, mucous membranes moist, Neck: supple, nontender, trachea midline. Lungs: No respiratory distress. Heart: RRR Back: nontender Extremities: Atraumatic. Neurovascularly intact. Neuro: Awake, alert, oriented. Neuro Exam nonfocal. No ataxia, normal gait Skin: warm, dry, no lesions Psych: Appears anxious Diagnostics: Labs, EKG, prior ER visits work-up reviewed as well Therapeutics: Zofran, GI cocktail, meclizine, IV fluids MDM: Impression: [] Plan: [] Definitive disposition and diagnosis as appropriate pending reevaluation and review of above. - Related Data Allergies Allergy/AdvReac Type Severity Reaction Status Date / Time No Known Allergies Allergy Verified 07/13/20 07:49 Home Meds: Home Meds Empagliflozin [Jardiance] 25 mg PO DAILY 07/10/20 [History] Meclizine [Antivert] 25 mg PO Q6H PRN #20 tab 07/10/20 [Rx] metFORMIN [Glucophage XR] 500 mg PO BID 07/10/20 [History] Past Medical History HEENT History: Reports: Impaired Vision Other HEENT History: wears glasses Cardiovascular History: Reports: None Respiratory History: Reports: None Gastrointestinal History: Reports: Gastritis, GERD, Helicobacter Pylori Genitourinary History: Reports: None 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 Hematologic History: Reports: None Immunologic History: Reports: None Oncologic (Cancer) History: Reports: None Dermatologic History: Reports: None - Infectious Disease History Infectious Disease History: Reports: None - Past Surgical History Head Surgeries/Procedures: Reports: None HEENT Surgical History: Reports: None Cardiovascular Surgical History: Reports: None Respiratory Surgical History: Reports: None GI Surgical History: Reports: Cholecystectomy, EGD Female Surgical History: Reports: Section Other Female Surgeries/Procedures: c/section x2 Endocrine Surgical History: Reports: None Neurological Surgical History: Reports: None Musculoskeletal Surgical History: Reports: None Oncologic Surgical History: Reports: None Dermatological Surgical History: Reports: None Social & Family History - Family History Family Medical History: Noncontributory OBGYN: Reports: Endocrine/Metabolic: Reports: IDDM - Tobacco Use Smoking Status *Q: Never Smoker - Caffeine Use Caffeine Use: Reports: None - Recreational Drug Use Recreational Drug Use: No ED ROS GENERAL - Review of Systems Review Of Systems: See Below (See HPI) ED EXAM, GENERAL - Physical Exam Exam: See Below (See HPI) EKG INTERPRETATION EKG Interpretation Comments: EKG performed today at 3:56 AM, sinus rhythm, rate 80, left anterior fascicular block, QTc 430, no STEMI. Course - Vital Signs Text/Narrative:: Ongoing dizziness, no clear etiology found on work-up here today, nor on work-up from [address] scan. Normal neurologic exam today. Given multiple medications and patient still symptomatic every time attempting to walk. Patient does not feel comfortable going home. Therefore will admit. Orthostatic vital signs performed, from laying to sitting to standing dropped about 10 points total systolic blood pressure and 10 beats per minute increasing heart rate. Last Recorded V/S: Last Vital Signs Temp 97.8 F 07/13/20 12:41 Pulse 85 07/13/20 12:41 Resp 18 07/13/20 05:15 BP 105/79 07/13/20 12:41 Pulse Ox 97 07/13/20 12:41 Orthostatic Blood Pressure [ 101/67 Standing] Orthostatic Blood Pressure [ 119/74 Sitting] Orthostatic Blood Pressure [ 113/72 Supine] - Orders/Labs/Meds Labs: Laboratory Tests 07/13/20 07/13/20 07/13/20 Range/Units 05:15 05:15 05:15 WBC 5.41 (4.0-11.0) K/uL RBC 4.40 (4.30-5.90) M/uL Hgb 13.3 (12.0-16.0) g/dL Hct 39.2 (36.0-46.0) % MCV 89.1 (80.0-98.0) fL MCH 30.2 (27.0-32.0) pg MCHC 33.9 (31.0-37.0) g/dL RDW Std Deviation 44.7 (28.0-62.0) fl RDW Coeff of Puneet 14 (11.0-15.0) % Plt Count 280 (150-400) K/uL MPV 10.00 (7.40-12.00) fL Neut % (Auto) 41.0 L (48.0-80.0) % Lymph % (Auto) 48.1 H (16.0-40.0) % [place] % (Auto) 8.5 (0.0-15.0) % Eos % (Auto) 2.2 (0.0-7.0) % Baso % (Auto) 0.2 (0.0-1.5) % Neut # (Auto) 2.2 (1.4-5.7) K/uL Lymph # (Auto) 2.6 H (0.6-2.4) K/uL [place] # (Auto) 0.5 (0.0-0.8) K/uL Eos # (Auto) 0.1 (0.0-0.7) K/uL Baso # (Auto) 0.0 (0.0-0.1) K/uL Nucleated RBC % 0.0 /100WBC Nucleated RBCs # 0 K/uL Sodium 136 (136-145) mmol/L Potassium 4.1 (3.5-5.1) mmol/L Chloride 102 (98-107) mmol/L Carbon Dioxide 22.7 (21.0-32.0) mmol/L BUN 9 (7.0-18.0) mg/dL Creatinine 0.8 (0.6-1.0) mg/dL Est Cr Clr Drug Dosing 79.11 mL/min Estimated GFR (MDRD) > 60.0 ml/min Glucose 155 H (74-106) mg/dL Calcium 9.4 (8.5-10.1) mg/dL Total Bilirubin 0.2 (0.2-1.0) mg/dL AST 19 (15-37) IU/L ALT 24 (14-63) IU/L Alkaline Phosphatase 85 (46-116) U/L Troponin I < 0.050 (0.000-0.056) ng/mL Total Protein 7.8 (6.4-8.2) g/dL Albumin 4.1 (3.4-5.0) g/dL Globulin 3.7 (2.6-4.0) g/dL Albumin/Globulin Ratio 1.1 (0.9-1.6) HCG, Qual NEGATIVE (NEG) SARS Virus RNA (PCR) (NEGATIVE) 07/13/20 Range/Units 05:30 WBC (4.0-11.0) K/uL RBC (4.30-5.90) M/uL Hgb (12.0-16.0) g/dL Hct (36.0-46.0) % MCV (80.0-98.0) fL MCH (27.0-32.0) pg MCHC (31.0-37.0) g/dL RDW Std Deviation (28.0-62.0) fl RDW Coeff of Puneet (11.0-15.0) % Plt Count (150-400) K/uL MPV (7.40-12.00) fL Neut % (Auto) (48.0-80.0) % Lymph % (Auto) (16.0-40.0) % [place] % (Auto) (0.0-15.0) % Eos % (Auto) (0.0-7.0) % Baso % (Auto) (0.0-1.5) % Neut # (Auto) (1.4-5.7) K/uL Lymph # (Auto) (0.6-2.4) K/uL [place] # (Auto) (0.0-0.8) K/uL Eos # (Auto) (0.0-0.7) K/uL Baso # (Auto) (0.0-0.1) K/uL Nucleated RBC % /100WBC Nucleated RBCs # K/uL Sodium (136-145) mmol/L Potassium (3.5-5.1) mmol/L Chloride (98-107) mmol/L Carbon Dioxide (21.0-32.0) mmol/L BUN (7.0-18.0) mg/dL Creatinine (0.6-1.0) mg/dL Est Cr Clr Drug Dosing mL/min Estimated GFR (MDRD) ml/min Glucose (74-106) mg/dL Calcium (8.5-10.1) mg/dL Total Bilirubin (0.2-1.0) mg/dL AST (15-37) IU/L ALT (14-63) IU/L Alkaline Phosphatase (46-116) U/L Troponin I (0.000-0.056) ng/mL Total Protein (6.4-8.2) g/dL Albumin (3.4-5.0) g/dL Globulin (2.6-4.0) g/dL Albumin/Globulin Ratio (0.9-1.6) HCG, Qual (NEG) SARS Virus RNA (PCR) NEGATIVE (NEGATIVE) Meds: Medications Discontinued Medications Generic Name Dose Route Start Last Admin Trade Name Freq PRN Reason Stop Dose Admin Acetaminophen 650 mg 07/13/20 08:06 Tylenol PO Q4H PRN Pain (Mild 1-3)/fever Al Hydroxide/Mg Hydroxide 15 0 ml 07/13/20 03:55 07/13/20 04:00 ml/ Lidocaine HCl 5 ml PO 07/13/20 03:56 1 each ONETIME ONE Administration Sodium Chloride 1,000 mls @ 999 mls/hr 07/13/20 05:15 07/13/20 05:15 Normal Saline IV 999 mls/hr ASDIRECTED MILLA Administration Sodium Chloride 1,000 mls @ 125 mls/hr 07/13/20 08:15 07/13/20 09:05 Normal Saline IV 125 mls/hr Q8H MILLA Administration Insulin Aspart 0 unit 07/13/20 08:12 07/13/20 12:38 Novolog SUBCUT Not [facility] Protocol Meclizine HCl 25 mg 07/13/20 03:35 07/13/20 03:58 Antivert PO 07/13/20 03:36 25 mg ONETIME ONE Administration Metformin HCl 500 mg 07/13/20 09:22 07/13/20 10:02 Glucophage PO 500 mg BIDMEALS MILLA Administration Ondansetron HCl 4 mg 07/13/20 03:55 07/13/20 04:00 Zofran Odt PO 07/13/20 03:56 4 mg ONETIME ONE Administration Ondansetron HCl 4 mg 07/13/20 08:06 Zofran IVPUSH Q4H PRN Nausea Sodium Chloride 10 ml 07/13/20 05:06 Saline Flush FLUSH ASDIRECTED PRN Keep Vein Open Sodium Chloride 2.5 ml 07/13/20 05:06 Saline Flush FLUSH ASDIRECTED PRN Keep Vein Open - Re-Assessments/Exams Free Text/Narrative Re-Assessment/Exam: 07/13/20 05:07 On reassessment, the patient is reporting that she still feels dizzy, she does not have much improvement from all of the medications she was given here today nor what she had been taking at home. We did attempt ambulation together. She does not appear to have any difficulty walking but did report worsening dizziness and feeling of unsteadiness. As I have been unable to achieve symptomatic relief in this patient despite multiple rounds of medications and recent negative work-up, will recheck labs and plan to admit the patient. 07/13/20 06:44 Dr. Cintron called back, accepts admission. Request to place the patient observation, telemetry Departure - Departure Time of Disposition: 06:38 Disposition: Refer to Observation Clinical Impression: Dizziness - Discharge Information Sepsis Event Note (ED) - Evaluation Sepsis Screening Result: No Definite Risk
[2020-07-13] MEDS ORDERED: Sodium Chloride 0.9% 2.5 ML Syringe FLUSH PRN (05:06)
[2020-07-13] MEDS ORDERED: Sodium Chloride 0.9% 10 ML Syringe FLUSH PRN (05:06)
[2020-07-13] MEDS ORDERED: Sodium Chloride 0.9% 1,000 ML IV SCH ×2 (05:15→08:15)
[2020-07-13 05:50] LABS: BLOOD UREA NITROGEN,BUN 9 mg/dL (7.0-18.0); CARBON DIOXIDE,CO2 22.7 mmol/L (21.0-32.0); CHLORIDE,CL 102 mmol/L (98-107); GLUCOSE RANDOM 155 mg/dL (74-106); POTASSIUM,K 4.1 mmol/L (3.5-5.1); SODIUM,NA 136 mmol/L (136-145)
[2020-07-13] MEDS ORDERED: Acetaminophen 325 MG Tab PO PRN (08:06)
[2020-07-13] MEDS ORDERED: Ondansetron 4 MG/2 ML SDV IVPUSH PRN (08:06)
--- NOTE | 2020-07-13 08:13 | PCM.HP.2 ---
H&P History of Present Illness - General Date of Service: 07/13/20 Admit Problem/Dx: Admission Diagnosis/Problem Admission Diagnosis/Problem Dizziness Source of Information: Patient History Limitations: Reports: No Limitations - History of Present Illness Initial Comments - Free Text/Narative: This 34 year old female with pmh of DM type 2 and anxiety presented to the ED with complaints of dizziness. Apparently she has seen many provider and was recently seen in the ED for this complaints. Initially she thought she had low blood sugars from insulin, this was stopped and she has been well controlled with Metformin. She had head CT in the ED which was negative and cerumen impaction removed. She continues to have intermittent dizziness when she wakes up and with eating this normally goes away. She denies vision changes, increased headaches and no gait concerns. She reports she is very tired and doesn't sleep much. She is a mom of three and her is working. She denies chest pain or SOB. No abdominal pain or urinary concerns. She is eating and rinking well at home. She denies alcohol or recreational drug use or tobacco use. In the ED labwork WNL. Telemetry has been SR with no arrhythmias. - Related Data Allergies/Adverse Reactions: Allergies Allergy/AdvReac Type Severity Reaction Status Date / Time No Known Allergies Allergy Verified 07/13/20 07:49 Home Medications: Home Meds Empagliflozin [Jardiance] 25 mg PO DAILY 07/10/20 [History] Meclizine [Antivert] 25 mg PO Q6H PRN #20 tab 07/10/20 [Rx] metFORMIN [Glucophage XR] 500 mg PO BID 07/10/20 [History] Past Medical History HEENT History: Reports: Impaired Vision Other HEENT History: wears glasses Cardiovascular History: Reports: None Respiratory History: Reports: None Gastrointestinal History: Reports: Gastritis, GERD, Helicobacter Pylori Genitourinary History: Reports: None 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: None Hematologic History: Reports: None Immunologic History: Reports: None Oncologic (Cancer) History: Reports: None Dermatologic History: Reports: None - Infectious Disease History Infectious Disease History: Reports: None - Past Surgical History Head Surgeries/Procedures: Reports: None HEENT Surgical History: Reports: None Cardiovascular Surgical History: Reports: None Respiratory Surgical History: Reports: None GI Surgical History: Reports: Cholecystectomy, EGD Female Surgical History: Reports: Section Other Female Surgeries/Procedures: c/section x3 Endocrine Surgical History: Reports: None Neurological Surgical History: Reports: None Musculoskeletal Surgical History: Reports: None Oncologic Surgical History: Reports: None Dermatological Surgical History: Reports: None Social & Family History - Family History Family Medical History: Noncontributory OBGYN: Reports: Endocrine/Metabolic: Reports: IDDM - Tobacco Use Smoking Status *Q: Never Smoker Second Hand Smoke Exposure: No - Caffeine Use Caffeine Use: Reports: Tea - Recreational Drug Use Recreational Drug Use: No H&P Review of Systems - Review of Systems: Review Of Systems: See Below General: Reports: No Symptoms. Denies: Fever, Chills HEENT: Reports: No Symptoms. Denies: Headaches, Sinus Congestion, Sore Throat, Vertigo, Visual Changes Pulmonary: Reports: No Symptoms. Denies: Shortness of Breath Cardiovascular: Reports: No Symptoms. Denies: Chest Pain Gastrointestinal: Reports: No Symptoms. Denies: Abdominal Pain, Black Stool, Bloody Stool, Nausea, Vomiting Genitourinary: Reports: No Symptoms. Denies: Dysuria, Frequency Musculoskeletal: Reports: No Symptoms Skin: Reports: No Symptoms Psychiatric: Reports: No Symptoms Neurological: Reports: No Symptoms Hematologic/Lymphatic: Reports: No Symptoms Immunologic: Reports: No Symptoms Exam - Exam Exam: See Below - Vital Signs Vital Signs: Last Vital Signs Temp 96.8 F L 07/13/20 03:39 Pulse 77 07/13/20 05:15 Resp 18 07/13/20 05:15 BP 124/72 07/13/20 05:15 Pulse Ox 98 07/13/20 05:15 Orthostatic Blood Pressure [ 101/67 Standing] Orthostatic Blood Pressure [ 119/74 Sitting] Orthostatic Blood Pressure [ 113/72 Supine] Weight: 64.455 kg - Exam General: Alert HEENT: Conjunctiva Clear, Hearing Intact, Posterior Pharynx Clear, Pupils Reactive, Glasses, PERRLA Lungs: Clear to Auscultation, Normal Respiratory Effort Cardiovascular: Regular Rate, Regular Rhythm GI/Abdominal Exam: Normal Bowel Sounds, Soft, Non-Tender Back Exam: Normal Inspection, Full Range of Motion Extremities: Normal Inspection, Normal Range of Motion, Non-Tender, No Pedal Edema Neurological: Cranial Nerves Intact Neuro Extensive - Mental Status: Alert, Oriented x3 Neuro Extensive - Motor, Sensory, Reflexes: CN II-XII Intact Psychiatric: Alert, Normal Affect, Normal Mood - Patient Data Lab Results Last 24 hrs: Laboratory Results - last 24 hr 07/13/20 07/13/20 07/13/20 Range/Units 05:15 05:15 05:15 WBC 5.41 (4.0-11.0) K/uL RBC 4.40 (4.30-5.90) M/uL Hgb 13.3 (12.0-16.0) g/dL Hct 39.2 (36.0-46.0) % MCV 89.1 (80.0-98.0) fL MCH 30.2 (27.0-32.0) pg MCHC 33.9 (31.0-37.0) g/dL RDW Std Deviation 44.7 (28.0-62.0) fl RDW Coeff of Puneet 14 (11.0-15.0) % Plt Count 280 (150-400) K/uL MPV 10.00 (7.40-12.00) fL Neut % (Auto) 41.0 L (48.0-80.0) % Lymph % (Auto) 48.1 H (16.0-40.0) % [place] % (Auto) 8.5 (0.0-15.0) % Eos % (Auto) 2.2 (0.0-7.0) % Baso % (Auto) 0.2 (0.0-1.5) % Neut # (Auto) 2.2 (1.4-5.7) K/uL Lymph # (Auto) 2.6 H (0.6-2.4) K/uL [place] # (Auto) 0.5 (0.0-0.8) K/uL Eos # (Auto) 0.1 (0.0-0.7) K/uL Baso # (Auto) 0.0 (0.0-0.1) K/uL Nucleated RBC % 0.0 /100WBC Nucleated RBCs # 0 K/uL Sodium 136 (136-145) mmol/L Potassium 4.1 (3.5-5.1) mmol/L Chloride 102 (98-107) mmol/L Carbon Dioxide 22.7 (21.0-32.0) mmol/L BUN 9 (7.0-18.0) mg/dL Creatinine 0.8 (0.6-1.0) mg/dL Est Cr Clr Drug Dosing 79.11 mL/min Estimated GFR (MDRD) > 60.0 ml/min Glucose 155 H (74-106) mg/dL Calcium 9.4 (8.5-10.1) mg/dL Total Bilirubin 0.2 (0.2-1.0) mg/dL AST 19 (15-37) IU/L ALT 24 (14-63) IU/L Alkaline Phosphatase 85 (46-116) U/L Troponin I < 0.050 (0.000-0.056) ng/mL Total Protein 7.8 (6.4-8.2) g/dL Albumin 4.1 (3.4-5.0) g/dL Globulin 3.7 (2.6-4.0) g/dL Albumin/Globulin Ratio 1.1 (0.9-1.6) HCG, Qual NEGATIVE (NEG) SARS Virus RNA (PCR) (NEGATIVE) 07/13/20 Range/Units 05:30 WBC (4.0-11.0) K/uL RBC (4.30-5.90) M/uL Hgb (12.0-16.0) g/dL Hct (36.0-46.0) % MCV (80.0-98.0) fL MCH (27.0-32.0) pg MCHC (31.0-37.0) g/dL RDW Std Deviation (28.0-62.0) fl RDW Coeff of Puneet (11.0-15.0) % Plt Count (150-400) K/uL MPV (7.40-12.00) fL Neut % (Auto) (48.0-80.0) % Lymph % (Auto) (16.0-40.0) % [place] % (Auto) (0.0-15.0) % Eos % (Auto) (0.0-7.0) % Baso % (Auto) (0.0-1.5) % Neut # (Auto) (1.4-5.7) K/uL Lymph # (Auto) (0.6-2.4) K/uL [place] # (Auto) (0.0-0.8) K/uL Eos # (Auto) (0.0-0.7) K/uL Baso # (Auto) (0.0-0.1) K/uL Nucleated RBC % /100WBC Nucleated RBCs # K/uL Sodium (136-145) mmol/L Potassium (3.5-5.1) mmol/L Chloride (98-107) mmol/L Carbon Dioxide (21.0-32.0) mmol/L BUN (7.0-18.0) mg/dL Creatinine (0.6-1.0) mg/dL Est Cr Clr Drug Dosing mL/min Estimated GFR (MDRD) ml/min Glucose (74-106) mg/dL Calcium (8.5-10.1) mg/dL Total Bilirubin (0.2-1.0) mg/dL AST (15-37) IU/L ALT (14-63) IU/L Alkaline Phosphatase (46-116) U/L Troponin I (0.000-0.056) ng/mL Total Protein (6.4-8.2) g/dL Albumin (3.4-5.0) g/dL Globulin (2.6-4.0) g/dL Albumin/Globulin Ratio (0.9-1.6) HCG, Qual (NEG) SARS Virus RNA (PCR) NEGATIVE (NEGATIVE) Result Diagrams: 07/13/20 05:15 07/13/20 05:15 Sepsis Event Note - Evaluation Sepsis Screening Result: No Definite Risk - Focused Exam Vital Signs: Vital Signs Temp Pulse Resp BP Pulse Ox 07/13/20 05:15 77 18 124/72 98 07/13/20 03:39 96.8 F L 84 18 108/79 98 - Problem List (1) Dizziness SNOMED Code(s): 340887903, 064598100 ICD Code: R42 - DIZZINESS AND GIDDINESS Status: Acute Current Visit: Yes (2) Anxiety SNOMED Code(s): 99415038 ICD Code: F41.9 - ANXIETY DISORDER, UNSPECIFIED Status: Acute Current Visit: No Problem List Initiated/Reviewed/Updated: Yes Orders Last 24hrs: Active Orders 24 hr Category Date Time Status Patient Status [ADT] Routine ADT 07/13/20 06:45 Active Blood Glucose Check, Bedside [RC] TIDAC Care 07/13/20 08:12 Ordered Orthostatic Vital Signs [RC] ASDIRECTED Care 07/13/20 05:06 Active Oxygen Therapy [RC] PRN Care 07/13/20 08:06 Ordered Up to Chair [RC] ASDIRECTED Care 07/13/20 08:06 Ordered VTE/DVT Education [RC] PER UNIT ROUTINE Care 07/13/20 08:06 Ordered Vital Signs [RC] Q4H Care 07/13/20 08:06 Ordered PT Evaluation and Treatment [CONS] Routine Cons 07/13/20 08:05 Ordered [place] [employer] Diet [DIET] Diet 07/13/20 Breakfast Ordered Acetaminophen [TylenoL] Med 07/13/20 08:06 Ordered 650 mg PO Q4H PRN Insulin Aspart [NovoLOG] Med 07/13/20 08:12 Ordered See Protocol SUBCUT TIDAC Ondansetron [Zofran] Med 07/13/20 08:06 Ordered 4 mg IVPUSH Q4H PRN Sodium Chloride 0.9% [Normal Saline] 1,000 ml Med 07/13/20 08:15 Ordered IV Q8H Sodium Chloride 0.9% [Saline Flush] Med 07/13/20 05:06 Active 2.5 ml FLUSH ASDIRECTED PRN Saline Lock Insert [OM.PC] Stat Oth 07/13/20 05:06 Ordered Resuscitation Status Routine Resus Stat 07/13/20 08:06 Ordered Medication Orders Acetaminophen (Tylenol) 650 mg PO Q4H PRN PRN Reason: Pain (Mild 1-3)/fever Sodium Chloride (Normal Saline) 1,000 mls @ 125 mls/hr IV Q8H MILLA Ondansetron HCl (Zofran) 4 mg IVPUSH Q4H PRN PRN Reason: Nausea Sodium Chloride (Saline Flush) 2.5 ml FLUSH ASDIRECTED PRN PRN Reason: Keep Vein Open Assessment/Plan Comment:: This 34 year old female admitted with dizziness 1. Dizziness: - Intermittent - PT consulted for vestibular work, no concerns of BPPV - Concern for more over fatigue and anxiety. She tends to agree with this. SHe is not sleeping well and has a constellation of symptoms that happen with the dizziness. No concern for CVA. - Orthostatic VS stable - Given IVFs, no hypoglycemia noted. - Requesting discharge home today after PT evaluation Discharge Plan: Discharge home today. She is to follow up with PCP, discuss anxiety/depression medications to help with mood. Encouraged her to take time to her self. She is to return to the ED or clinic if concerns should arise - Mortality Measure Prognosis:: Good
[2020-07-13] MEDS: Insulin Aspart 100 Units/ML 3 ML Pen SUBCUT SCH ×2 (09:05→12:38)
[2020-07-13] MEDS ORDERED: metFORMIN 500 MG Tab PO SCH (09:22)
[2020-07-13 12:42] VITALS: BP 105/79; PULSE 85
== END 2020-07-13 14:25 | disposition home or self-care (01) ==
LOC: MW.ED 03:19 → MW.MS 06:45
PROVIDERS: ADMIT Internal Medicine; ATTEND Internal Medicine
DX: R42 Dizziness and giddiness (principal); E11.9 Type 2 diabetes mellitus without complications; F41.9 Anxiety disorder, unspecified; Z20.828 Contact with and (suspected) exposure to other viral communicable diseases; Z79.899 Other long term (current) drug therapy; Z79.84 Long term (current) use of oral hypoglycemic drugs
CPT/HCPCS: 36415; 80053; 82962; 84484; 84703; 85025; 87635; 93005; 96360; 97161; 99285; A9270; G0378; J7030; 99234; 99284; U0002